=== PATIENT | female | born 1980 | race Caucasian/White ===

== ENCOUNTER 2020-02-12 17:45 | Inpatient (IN) | payer MEDICAID, SELFPAY ==
[2020-02-12] VITALS (83 sets, daily range): BP systolic 0–133; BP diastolic 0–75; PULSE 46–73; RESP 18; TEMP 36.9–37; O2SAT 91–100
[2020-02-12] MEDS: lactated ringers 1,000 ML 125 ML IV (12:56)
[2020-02-12] MEDS: ampicillin 2,000 MG in sodium chloride 0.9% (plus) 50 ML 100 MG IV (12:56)
[2020-02-12 13:14] LABS: Basophils % 0.2 %; Eosinophils # 0.1 10^3/uL (0.0-0.8); Eosinophils % 0.9 %; Hematocrit 37.1 % (37.0-47.0); Hemoglobin 11.8 g/dL (11.5-15.3); Lymphocytes # 1.6 10^3/uL (0.8-4.8); Lymphocytes % 17.8 %; Mean Corpuscular HGB Conc 31.8 g/dL (30.0-36.0); Mean Corpuscular Hemoglobin 29.9 pg (28.0-34.0); Mean Corpuscular Volume 93.9 fL (81-99); Mean Platelet Volume 11.9 fL (7.4-10.4); Monocytes # 0.5 10^3/uL (0.2-0.9); Monocytes % 5.2 %; Neutrophils # 6.63 10^3/uL (1.8-7.7); Neutrophils % 74.9 %; Nucleated Red Blood Cells % 0 %; Platelet Count 172 10^3/cmm (130-400); Red Blood Count 3.95 10^6/uL (4.1-5.3); Red Cell Distribution Width 13.5 % (12.1-15.1); White Blood Count 8.9 10^3/uL (4.0-10.0)
[2020-02-12] MEDS: ampicillin 1,000 MG in sodium chloride 0.9% (plus) 50 ML 100 MG IV ×2 (16:45→20:51)
[2020-02-12] MEDS: oxytocin 30 UNIT/500 ML BAG IV (17:45)
--- NOTE | 2020-02-12 17:46 | PM.HP ---
Providers/Chief Complaint Chief Complaint: malpresentation History of Present Illness Amira Juarez is a 39 year old female G6, P5 at 40 weeks 1 day gestation who is here for external cephalic version and induction.. Mother had insufficient care starting at approximately 22 weeks gestation. Her first ultrasound was around 26 weeks gestation but was consistent with her LMP. The baby was vertex until her office visit yesterday where he was found to be breech. She was also noted to have polyhydramnios with an TOMMY of 27. Biophysical profile was 8 out of 8. The patient wished to go into labor on her own and had declined induction at 39 weeks gestation. With a new diagnosis of malpresentation and polyhydramnios risk benefits and alternatives of , external cephalic version, breech vaginal delivery were discussed with the mother at length. Decision was made to attempt external cephalic version. If it was successful we would then induce. If it is unsuccessful then we will proceed with section Review of Systems Const: Denies: fever(s), chills or body aches Eyes: Denies: blurry vision ENMT: Denies: throat pain Card: Denies: chest pain or palpitations Resp: Denies: dyspnea or productive cough GI: Denies: abdominal pain, nausea or vomiting : Denies: flank pain or difficulty voiding Musc: Denies: joint redness Skin/Breast: Denies: rash Neuro: Denies: headache(s) or numbness in extremities Endo: Denies: polyuria or polydipsia Checo/Lymph: Denies: easy bruising or easy bleeding Medications/Allergies Home Medications Medication Instructions Recorded Confirmed Last Taken Type vit no.[id number] 1 tab PO DAILY 02/12/20 02/12/20 02/11/20 18:00 History [ Vitamin] PFSH Acute PFSH: Social History (Updated 02/12/20 @ 17:56 by Sandie Chavez MD) Smoking and tobacco status: never smoked Second hand smoke exposure: No Alcohol intake: never Substance/Drug Use: never Number of children: 5 Female Reproductive History: Date of last menstrual period: 05/07/19 control method: none : 6 Para: 5 Spontaneous abortions: No Other female reproductive history: x 5, all full term, largest 9#0 oz. She was still her youngest child and did not think much about missing periods until she noticed she was getting bigger. First visit was 10/03/19. Due to a misunderstanding she scheduled her first ultrasound at her next visit in 1 month but at 26 weeks it was consistent with her lmp. Vitals/I&O/Wt Last Vital Signs Temp 98.6 F 02/12/20 12:24 Pulse 59 L 02/12/20 16:53 Resp 18 02/12/20 12:24 BP 105/60 02/12/20 16:53 02/12/20 02/12/20 02/12/20 06:59 14:59 22:59 Intake Total 120.833 / 120.833 0 / 120.833 Balance 120.833 / 120.833 0 / 120.833 Weight last 48 hrs Weight 205 lb Physical Exam Const: COMMON NORMALS: no acute distress GENERAL APPEARANCE: cooperative and comfortable HENMT: COMMON NORMALS: normocephalic and atraumatic Eye: COMMON NORMALS: Equal, round and reactive pupils present and EOMs intact bilaterally Chest: COMMONS NORMALS: normal inspection of the chest Resp: COMMON NORMALS: normal respiratory effort, No use of accessory muscles and clear to auscultation bilaterally Cardio: COMMON NORMALS: regular rate and regular rhythm GI: COMMON NORMALS: non-tender Extremity: COMMON NORMALS: no calf tenderness and no pedal edema Neuro: COMMON NORMALS: patient oriented x3 SENSORIUM/ORIENTATION: Yes alert Psych: COMMON NORMALS: mental status grossly normal Data : 02/12/20 12:50 A&P Assessment and plan (1) Breech presentation of fetus: Given the fact that she is a multipara with a history of fast labors and she is GBS positive we will go ahead and give her 2 doses of ampicillin prior to attempting external cephalic version. Plan is to do external cephalic version and then proceed with induction for vaginal delivery. If the external cephalic version is unsuccessful then we will proceed with section for breech delivery. Status: Acute (2) 40 weeks gestation of : Status: Acute (3) Advanced maternal age (AMA) in : Status: Acute (4) Insufficient care: Status: Acute (5) Polyhydramnios: Status: Acute (6) Positive GBS test: Status: Acute Attestations Medical Necessity Statement*: Expectant management and possible surgery Coding Level of Care Code Acute Shop Repairer for Chg Fwd Diagnoses Breech presentation of fetus O32.1XX0 40 weeks gestation of Z3A.40 Advanced maternal age (AMA) in Insufficient care O09.30 Polyhydramnios O40.9XX0 Positive GBS test B95.1
--- NOTE | 2020-02-12 18:06 | PM.ACPR ---
Procedure/Consent Procedure Narrative: External cephalic version After informed consent bedside ultrasound was performed to verify breech presentation and ensure that the umbilical cord was not encircling the neck. The umbilical cord was noted to be in front of the face, spine maternal left, left leg extended in front of the face and right leg flexed. heart tones were 125. A copious amount of ultrasound gel was applied to the patient's belly and using gentle pushing movements on the 's buttocks and head, the was rotated into cephalic presentation within 2.5 minutes time. heart tones were assessed at the 2-minute madhav and found to be 135. They were also 135 at the end of the procedure. Mother tolerated the procedure well and there were no complications. Anesthesia was present on the floor in case of emergency.
--- NOTE | 2020-02-12 18:45 | ANES.PROC ---
Anesthesia Procedures Procedure/Date: 02/12/20 Epidural: Time Out Performed: Yes Consents Signed: Procedure Consent Consent: requested by attending/covering physician Lumbar Level: L3-L4 Epidural position: sitting Epidural procedure: sterile prep of area, 1% lidocaine to numb the area, 18 g needle, negative for paresthesia passed, neg for paresthesia, test dose given, 1.5% xylocaine 1:200k epi (3), no systemic response, sterile dressing applied, L.U.D. no apparent complications and 0.2% Ropiavacaine @ mls/hr (13)
--- NOTE | 2020-02-12 18:57 | PC.NURSE ---
External cephalic version Dr Chavez at bedside at 1710, spoke with pt, monitors off, bedside ultrasound performed by Dr Chavez, baby transverse, head to maternal left. at 1726 FHTs 120s, external version started, at 1728 FHTs 120s, at 1729 baby confirmed head down via bedside ultrasound, 1730 FHTs 150s. External monitors back on and orders for high dose pitocin. Pitocin started at 1745.
[2020-02-12] MEDS: lactated ringers 1,000 ML 999 ML IV (19:22)
[2020-02-12] MEDS: terbutaline 1 mg/mL INJ 0.25 MG SUBCUT (23:54)
[2020-02-13] VITALS (31 sets, daily range): BP systolic 0–110; BP diastolic 0–70; PULSE 64–121; RESP 14–18; TEMP 36.4–36.8; O2SAT 92–100
[2020-02-13] MEDS: citric acid-sodium citrate 30 mL UDC PO (00:15)
[2020-02-13] MEDS: famotidine 20 mg/2 mL INJ IVP ×2 (00:15)
--- NOTE | 2020-02-13 01:55 | P.OP_ITS ---
Operative Report Date of procedure: February 13, 2020 Pre-op Diagnosis: Acute intraoperative bleeding Post-op Diagnosis: Acute intraoperative bleeding Procedure Done: Closure of uterine incision and uterine artery ligation Surgeon: Parker Mandujano Assembler Mechanical Ordnance: Sandie Chavez Anesthesia: Other (Regional) Estimated blood loss: >1200 mL Findings: Inferior extension of the left side of the uterine incision extending to the broad ligament, superior extension of the left side of the incision into the main part of the uterus. Brief History: I was contacted by the OR nurse at the request of Dr. Chavez due to intraoperative bleeding from uterine incision. Patient is a 6, para 5 with an EDC of 02/11/2020, who was at 40-1/7 weeks gestation at the time of admission on 02/12/2020. She had been taken to the operating room by Dr. Chavez for primary section. During the surgery, she had bleeding from the left side of the uterine incision with an inferior extension to the edge and possibly into the broad ligament. As a result, I was consulted. Procedure: On my arrival, the uterus was exteriorized and the uterine incision had been initially closed with first layer closure. On my inspection, she was noted to be bleeding from an inferior extension at the left corner of the uterus extending down to the edge of the broad ligament. She also had an extension superiorly along the left corner of the uterus as well into the main body of the uterus. Using 0 chromic suture, I initially oversewed the inferior extension. During this process we found that uterine vessels were involved with the bleeding. This initially significantly slowed the bleeding at the extension area. The incision was then imbricated using a running locking stitch carried in a cephalad direction along the inferior extension and then up along the superior extension as well before imbricating the rest of the low transverse incision. On reinspection of the left inferior extension, she was noted to still be bleeding from the area and decision was made to tie the uterine vessels. Using 0 chromic suture, a xwottg-ce-txaai stitch was placed below the apex of the extension. The stitch was initially passed through the body of the uterus from anterior to posterior. It was then passed back through the broad ligament, not incorporating the ovarian vessels in the process. This was then repeated in a similar fashion for the second throw the suture. When tied, this compressed the uterine vessels against the side of the uterus and stopped the bleeding from the area of the inferior extension. She was still having some bleeding from the superior extension on the left side and a third layer was then oversewn of the superior extension using 0 chromic suture in a running fashion. This brought it to hemostasis as well. The incision was then inspected and appeared hemostatic. The posterior cul-de-sac was inspected with minimal blood present. No hematoma formation was noted within the broad ligament bilaterally. Uterus was returned to the abdomen. Uterine incision was irrigated and inspected. The left side of the incision included the extensions were noted to be hemostatic. The transverse portion of the uterine incision was hemostatic as well. However, she was bleeding in the corner of the right side of her incision. Direct pressure was initially held for approximately 5 minutes. However afterwards the corner was still bleeding and a stitch of 0 chromic suture was placed distal to the end of the incision and it was noted to be hemostatic afterwards. The incision was then again fully inspected and noted to be hemostatic. At this point the surgery was turned back over to Dr. Chavez who completed the closure of the abdomen.
[2020-02-13 02:32] LABS: Basophils % 0.2 %; Eosinophils % 0.1 %; Hematocrit 28.3 % (37.0-47.0); Hemoglobin 8.9 g/dL (11.5-15.3); Lymphocytes % 5.8 %; Mean Corpuscular HGB Conc 31.4 g/dL (30.0-36.0); Mean Corpuscular Hemoglobin 30.3 pg (28.0-34.0); Mean Corpuscular Volume 96.3 fL (81-99); Mean Platelet Volume 11.8 fL (7.4-10.4); Monocytes % 5.6 %; Neutrophils # 15.76 10^3/uL (1.8-7.7); Neutrophils % 87.7 %; Nucleated Red Blood Cells % 0 %; Platelet Count 142 10^3/cmm (130-400); Red Blood Count 2.94 10^6/uL (4.1-5.3); Red Cell Distribution Width 13.7 % (12.1-15.1)
--- NOTE | 2020-02-13 02:36 | PM.OP ---
Operative Report Date of procedure: February 13, 2020 Pre-op Diagnosis: Acute intraoperative bleeding Pre-op Diagnosis: Nonreassuring heart tones Failure to descend Post-op diagnosis: same Procedure Done: Emergent primary low transverse section via Pfannenstiel skin incision Specimens removed/disposition: Vertex male infant weight 3690 g, 8 pounds 2 ounces, Apgars 9 and 9 Pathology: none sent Anesthesia: Epidural Estimated blood loss (mL): 1,100 IV fluids (mL): 2,000 Urine output (mL): 100 Complications: Left uterine incision extension both superiorly and inferiorly with acute intraoperative bleeding. Condition: stable Disposition: floor Brief History: This is a 39-year-old at 40 weeks 2 days gestation who was admitted for external cephalic version which ended up being successful. She was known to be GBS positive and had a history of fast labors so she was started on ampicillin protocol prior to the version. After the successful version the patient was then induced using Pitocin. For a multipara she was slow to make cervical change. She had spontaneous rupture of the membranes with copious clear fluid jonatan bout 6 cm dilation. Immediately thereafter the patient began having FHR decelerations. Despite stopping the Pitocin, repositioning, starting oxygen and bolusing the decelerations persisted and she was given a dose of terbutaline. During this time I was called emergently and when I presented the patient was in hands and knees with heart tones in the 110s. Cervical exam was performed with the patient in the same position and was felt to be favorable with easily reducible cervix. After we allowed recovery of the infant's heart tones we positioned her back in dorsal lithotomy position. The infant's head was -3 station and with contractions heart rate with D-cell into the 80s. Decision was made to proceed with emergent section as the patient was still 6 cm and the was not tolerating contractions, no descending. Procedure: After bolusing her epidural the patient was taken to the OR where she was prepped and draped emergently with a Betadine splash. After verifying adequate epidural anesthesia a Pfannenstiel skin incision was made and carried through to the underlying rectus muscles sharply using the scalpel. The peritoneum was then entered bluntly using a hemostat. The bladder blade was inserted. The vesicouterine peritoneum was entered sharply using the Metzenbaums and the bladder flap was created digitally. The bladder blade was then reinserted. Uterine incision was made in a transverse fashion in the lower uterine segment. Amniotic rupture membranes was performed sharply using the scalpel. The 's head was delivered atraumatically with immediate delivery of the body. There was a body cord. The had strong cry and was suctioned at delivery. The cord was clamped and cut and the was handed to the waiting pediatric team. Cord blood was obtained. The placenta was delivered grossly intact and normal to inspection using fundal pressure. The uterus was then exteriorized from the abdomen and a dry sponge was used to clear the uterus of clots and debris. There was a copious amount of blood flowing from the left aspect of the incision and Dr. Mandujano was called in for assistance. Multiple ring forceps were used to grasp the lower and left incision edges to hetal the bleeding. The uterine incision was then reapproximated using 0 chromic in a running locked fashion. Dr. Mandujano presented at this point and took over repair of the inferior extension, ligation of the left uterine vessels and repair of the superior extension. Please see his dictation for further details. After the uterine incision was hemostatic. I then reapproximated the peritoneum using 4-0 Vicryl in a running fashion. The subfascial tissue was inspected for hemostasis. The fascia was then reapproximated using 0 Vicryl in a running fashion. The subcutaneous tissue was then irrigated and any small bleeders were coagulated using the Bovie. The subcutaneous tissue was then reapproximated using 4-0 Vicryl in a running fashion. The skin was then reapproximated using 4-0 Vicryl on a Cipriano needle. Steri-Strips and a pressure bandage were applied and patient went to recovery in stable condition. Sponge instrument and needle counts were correct Associated Problem List Diagnoses (1) Non-reassuring heart tones complicating , antepartum: (2) Failure of descent in labor, delivered, current hospitalization:
--- NOTE | 2020-02-13 04:45 | PC.NURSE ---
0010 DR URENA IN ROOM. BABY IS NOT DESCENDING. SECTION CALLED AT THIS TIME. ANESTHESIA IS ON FLOOR.
--- NOTE | 2020-02-13 05:25 | PC.NURSE ---
0057 - DR ANDRADE CALLED FROM OR PER DR URENA REQUEST DUE TO UTERINE INCISION EXTENSION AND BLEEDING. 0110 - DR ANDRADE SCRUBBING IN FOR SURGERY.
--- NOTE | 2020-02-13 05:31 | PC.NURSE ---
0056 - DR URENA ORDERED EMERGENCY RELEASE BLOOD AT THIS TIME. 0105- EMERGENCY RELEASE BLOOD IN OR. 0105 - KEEP ON HOLD PER DR URENA.
[2020-02-13] MEDS: ketorolac 30 mg/mL INJ IVP ×3 (09:06→20:49)
--- NOTE | 2020-02-13 09:12 | ANE.PACU2 ---
Inpatient post-anesthesia follow up: Airway intact: Yes Vital signs: Temperature 98.1 F Pulse Rate 86 Respiratory Rate 14 Blood Pressure 97/64 Pulse Oximetry 98 Oxygen Delivery Me thod Room Air Oxygen Flow Rate Fraction of Inspir ed Oxygen Hydration adequate: Yes Nausea and vomiting: No Pain level: 5 Mental status: Baseline Additional Comments: Alvarado in place, not up and walking yet. No back pain, no headache, no signs of infection at epidural site. Denies weakness or numbness of legs
[2020-02-13] MEDS: dextrose 5%-lactated ringers 1,000 ML 125 ML IV (10:07)
[2020-02-13 11:20] LABS: Basophils % 0.3 %; Hematocrit 24.4 % (37.0-47.0); Hemoglobin 7.9 g/dL (11.5-15.3); Lymphocytes # 1.1 10^3/uL (0.8-4.8); Lymphocytes % 9.8 %; Mean Corpuscular HGB Conc 32.4 g/dL (30.0-36.0); Mean Corpuscular Hemoglobin 31.1 pg (28.0-34.0); Mean Corpuscular Volume 96.1 fL (81-99); Mean Platelet Volume 11.8 fL (7.4-10.4); Monocytes # 0.6 10^3/uL (0.2-0.9); Monocytes % 5.5 %; Neutrophils # 9.12 10^3/uL (1.8-7.7); Neutrophils % 83.8 %; Nucleated Red Blood Cells % 0 %; Platelet Count 139 10^3/cmm (130-400); Red Blood Count 2.54 10^6/uL (4.1-5.3); Red Cell Distribution Width 13.7 % (12.1-15.1); White Blood Count 10.9 10^3/uL (4.0-10.0)
[2020-02-13] MEDS: docusate sodium 100 mg Capsule PO (17:08)
[2020-02-13] MEDS: HYDROcodone-acetaminophen 5-325 mg Tablet PO ×2 (17:15→22:08)
[2020-02-13] MEDS: ferrous sulfate EC 325 mg Tablet PO (17:19)
[2020-02-14] MEDS: HYDROcodone-acetaminophen 5-325 mg Tablet PO ×6 (02:06→23:45)
[2020-02-14] MEDS: simethicone 80 mg Chew PO ×2 (03:48→23:52)
[2020-02-14 04:10] LABS: Basophils % 0.3 %; Eosinophils # 0.1 10^3/uL (0.0-0.8); Eosinophils % 0.5 %; Hematocrit 22.8 % (37.0-47.0); Hemoglobin 7.3 g/dL (11.5-15.3); Lymphocytes # 1.7 10^3/uL (0.8-4.8); Lymphocytes % 14.9 %; Mean Corpuscular Hemoglobin 30.8 pg (28.0-34.0); Mean Corpuscular Volume 96.2 fL (81-99); Monocytes # 0.7 10^3/uL (0.2-0.9); Monocytes % 6.1 %; Neutrophils # 8.94 10^3/uL (1.8-7.7); Neutrophils % 77.6 %; Nucleated Red Blood Cells % 0 %; Platelet Count 144 10^3/cmm (130-400); Red Blood Count 2.37 10^6/uL (4.1-5.3); Red Cell Distribution Width 14.2 % (12.1-15.1); White Blood Count 11.5 10^3/uL (4.0-10.0)
[2020-02-14 04:30] VITALS: BP 107/72; PULSE 74; RESP 16; TEMP 36.7; O2SAT 98
[2020-02-14] MEDS: prenatal vitamin Capsule 1 CAP PO (08:20)
[2020-02-14] MEDS: ferrous sulfate EC 325 mg Tablet PO ×2 (08:20→18:54)
[2020-02-14] MEDS: docusate sodium 100 mg Capsule PO ×2 (08:20→18:54)
--- NOTE | 2020-02-14 11:36 | ANE.PACU2 ---
Inpatient post-anesthesia follow up: Airway intact: Yes Vital signs: Temperature 98.1 F Pulse Rate 74 Respiratory Rate 16 Blood Pressure 107/72 Pulse Oximetry 98 Oxygen Delivery Me thod Room Air Oxygen Flow Rate Fraction of Inspir ed Oxygen Hydration adequate: Yes Nausea and vomiting: No Pain level: 1 Mental status: Baseline Additional Comments: Called to evaulate patient for residual back pain associated with epidural. Site shows no signs of infection and no bruising. Mildly tender to palpation. Patient complaining of localized pain at the area. No muscle weakness no numbness of lower extremities. Educated patient that discomfort should continued to improve and to look for development of red flags like increasing pain, swelling, purulence, erythema, fever, or loss of bowel or bladder function, weakness or numbness.
--- NOTE | 2020-02-14 12:24 | PM.PN ---
Subjective Subjective: Interval history: When I visit with the patient she does not have any complaints. She states that her bleeding is not bad at all. Her pain is adequately controlled. Vitals/I&O/Wt Last Vital Signs Temp 98.1 F 02/14/20 04:30 Pulse 74 02/14/20 04:30 Resp 16 02/14/20 04:30 BP 107/72 02/14/20 04:30 Pulse Ox 98 02/14/20 04:30 02/13/20 02/14/20 02/14/20 22:59 06:59 14:59 Intake Total 322.917 / 891.667 Output Total 550 / 1200 1580 / 1580 Balance -227.083 / -308.333 -1580 / -1580 Weight last 48 hrs Weight 205 lb Physical Exam Const: COMMON NORMALS: no acute distress GENERAL APPEARANCE: cooperative and comfortable HENMT: COMMON NORMALS: normocephalic HEAD & SCALP: normocephalic Eye: COMMON NORMALS: Equal, round and reactive pupils present and EOMs intact bilaterally PUPIL: Yes Equal, round and reactive pupils present Chest: COMMONS NORMALS: normal inspection of the chest Resp: COMMON NORMALS: normal respiratory effort and No use of accessory muscles Cardio: COMMON NORMALS: regular rate and regular rhythm RATE: regular rate RHYTHM: regular rhythm GI: COMMON NORMALS: Soft to palpation INSPECTION: Yes normal to inspection and Yes incision (Patient still has a pressure bandage in place. She was advised to remove this with her shower) PALPATION: Yes Soft to palpation and Yes Tenderness to palpation present (GI) (Appropriate postoperative) Extremity: COMMON NORMALS: no pedal edema GENERAL: No calf tenderness Urinary Catheter Management^: Alvarado: Cath Placed During This Visit: yes, but has since been removed by the nurse Reason for Continuing Indwelling Catheter: Decision to DC Catheter Urinary Catheter Date of Insertion: 02/13/20 Urinary Catheter Time of Insertion: 00:20 Date Urinary Catheter Removed: 02/13/20 Time Urinary Catheter Discontinued: 17:15 Data : 02/14/20 03:55 A&P Assessment and plan (1) Status post primary low transverse section: Routine postoperative care Status: Acute (2) Failure of descent in labor, delivered, current hospitalization: Status: Acute (3) Non-reassuring heart tones complicating , antepartum: Status: Acute (4) Positive GBS test: Status: Acute (5) Polyhydramnios: Status: Acute (6) Insufficient care: Status: Acute (7) Advanced maternal age (AMA) in : Status: Acute (8) 40 weeks gestation of : Status: Acute (9) Breech presentation of fetus: Status: Acute Attestations Medical Necessity Statement*: Routine and postoperative care Coding Level of Care Code Acute Roll Forming Machine Set Up Operator for Chg Fwd Diagnoses Status post primary low transverse section Z98.891 Failure of descent in labor, delivered, current hospitalization O62.2 Non-reassuring heart tones complicating , antepartum O36.8390 Positive GBS test B95.1 Polyhydramnios O40.9XX0 Insufficient care O09.30 Advanced maternal age (AMA) in 40 weeks gestation of Z3A.40 Breech presentation of fetus O32.1XX0
[2020-02-14 12:30] VITALS: BP 95/58; PULSE 80; RESP 18; TEMP 36.4; O2SAT 100
[2020-02-14 18:45] VITALS: BP 101/49; PULSE 60; RESP 16; TEMP 36.4; O2SAT 99
[2020-02-15] MEDS: HYDROcodone-acetaminophen 5-325 mg Tablet PO ×5 (05:11→23:39)
[2020-02-15 06:35] VITALS: BP 98/62; PULSE 83; RESP 16; TEMP 36.7; O2SAT 97
[2020-02-15] MEDS: simethicone 80 mg Chew PO ×4 (08:43→23:39)
[2020-02-15] MEDS: docusate sodium 100 mg Capsule PO ×2 (08:44→18:54)
[2020-02-15] MEDS: ferrous sulfate EC 325 mg Tablet PO ×2 (08:44→18:54)
[2020-02-15] MEDS: prenatal vitamin Capsule 1 CAP PO (08:45)
--- NOTE | 2020-02-15 08:57 | PC.NURSE ---
I WENT TO SEE THIS PT. SHE WAS HOLDING BABY WHO WAS ASLEEP. SHE REVIEWED HER I/O SHEET FOR ME SAYING SHE HEARD THE NURSES AT THE DESK TALKING ABOUT HER I/O SHEET BEING OUT OF ORDER IN THE TIMELINE. SHE DID NOT HAVE HER SHEET AT THE START OF THE SHIFT AND WHEN SHE GOT IT SHE WROTE THE CURRENT FEEDING (AT THAT TIME) DOWN THEN BACKTRACKED TO RECORD ALL FEEDINGS. SHE SAID THEY COULD HAVE COME TO ME AND ASKED RATHER THAN TALK ABOUT ME AT THE DESK. SHE HAS HAD MORE FEEDINGS THIS PAST NIGHT. I STARTED TALKING TO HER ABOUT BABY'S WEIGHT LOSS AND SHE KNEW IT WAS NORMAL FOR BABIES TO LOSE WEIGHT. I TOLD HER HER BABY WAS 3 OZ. BELOW THE 7% AND SHE TOLD ME TO GET OUT, SHE WILL DISCUSS IT WITH HER DOCTOR AND SHE WILL NOT BE FORCED TO GIVE FORMULA. I TOLD HER I DID NOT WANT HER TO GIVE FORMULA AND THAT DR URENA WILL BE IN TO SEE HER SOON. Initialized on 02/15/20 08:44 - END OF NOTE
--- NOTE | 2020-02-15 09:24 | PM.PN ---
Subjective Subjective: Interval history: She has not had a bowel movement but she is passing flatus. She states that she is swelling a terrible amount. Her bleeding is very minimal. Her pain is controlled with the medications Vitals/I&O/Wt Last Vital Signs Temp 98.0 F 02/15/20 06:35 Pulse 83 02/15/20 06:35 Resp 16 02/15/20 06:35 BP 98/62 02/15/20 06:35 Pulse Ox 97 02/15/20 06:35 02/14/20 02/15/20 02/15/20 22:59 06:59 14:59 Intake Total 800 / 800 1000 / 1800 Balance 800 / -1480 1000 / -480 Physical Exam Const: COMMON NORMALS: no acute distress GENERAL APPEARANCE: cooperative and comfortable HENMT: COMMON NORMALS: normocephalic HEAD & SCALP: normocephalic Eye: COMMON NORMALS: Equal, round and reactive pupils present and EOMs intact bilaterally PUPIL: Yes Equal, round and reactive pupils present Resp: COMMON NORMALS: normal respiratory effort and No use of accessory muscles Cardio: COMMON NORMALS: regular rate RATE: regular rate GI: COMMON NORMALS: Soft to palpation INSPECTION: Yes normal to inspection PALPATION: Yes Soft to palpation, Yes Firmness to palpation present (GI) (Fundus firm U- 2) and Yes Tenderness to palpation present (GI) (Appropriate postoperative, incision clean dry and intact) Extremity: COMMON NORMALS: no calf tenderness GENERAL: Yes edema (Nonpitting) Urinary Catheter Management^: Alvarado: Cath Placed During This Visit: yes, but has since been removed by the nurse Reason for Continuing Indwelling Catheter: Decision to DC Catheter Urinary Catheter Date of Insertion: 02/13/20 Urinary Catheter Time of Insertion: 00:20 Date Urinary Catheter Removed: 02/13/20 Time Urinary Catheter Discontinued: 17:15 Data : 02/14/20 03:55 A&P Assessment and plan (1) Status post primary low transverse section: Status: Acute Additional A&P Information Continue routine postoperative and care likely discharge home tomorrow Attestations Medical Necessity Statement*: Routine postoperative and care Coding Level of Care Code Acute Single Needle Operator for Chg Fwd Diagnoses Status post primary low transverse section Z98.891
[2020-02-15 10:00] VITALS: BP 111/62; PULSE 82; RESP 16; TEMP 36.4; O2SAT 97
[2020-02-15 17:00] VITALS: BP 101/68; PULSE 64; RESP 16; TEMP 36.6; O2SAT 98
[2020-02-15 22:10] VITALS: BP 118/70; PULSE 78; RESP 16; TEMP 36.6; O2SAT 98
[2020-02-16] MEDS: HYDROcodone-acetaminophen 5-325 mg Tablet PO ×3 (04:24→11:51)
[2020-02-16] MEDS: simethicone 80 mg Chew PO (04:24)
[2020-02-16 05:00] VITALS: BP 123/81; PULSE 64; RESP 16; TEMP 36.6; O2SAT 98
[2020-02-16] MEDS: prenatal vitamin Capsule 1 CAP PO (08:44)
[2020-02-16] MEDS: docusate sodium 100 mg Capsule PO (08:44)
[2020-02-16] MEDS: ferrous sulfate EC 325 mg Tablet PO (08:46)
--- NOTE | 2020-02-16 09:59 | PM.OBGYDC ---
Discharge Providers DATA MANAGEMENT SPECIALIST Date of Admission: 02/12/20 17:45 Date of Discharge: 02/16/20 Attending Provider at Admission: Sandie Chavez MD Attending Provider at Discharge: Sandie Chavez MD Diagnoses at Discharge Discharge Diagnosis (1) Status post primary low transverse section: Status: Acute (2) Failure of descent in labor, delivered, current hospitalization: Status: Acute (3) Non-reassuring heart tones complicating , antepartum: Status: Acute (4) Positive GBS test: Status: Acute (5) Polyhydramnios: Status: Acute (6) Insufficient care: Status: Acute (7) Advanced maternal age (AMA) in : Status: Acute (8) 40 weeks gestation of : Status: Acute (9) Breech presentation of fetus: Status: Acute Reason for Visit Reason for Visit: malpresentation Hospital Course Hospital Course: This is a 39-year-old G6 now P6 who was admitted for external cephalic version and induction at 40 weeks 2 days gestation. She underwent a successful cephalic version however in the labor process after her water was broken the began having deep decelerations with every contraction. His station was also extremely high and without change since the beginning of the induction. Decision was made to proceed with emergent section. section was complicated by acute intraoperative bleeding. Mother did well after surgery. She was ambulating, tolerating a regular diet, had decent pain control and was requesting discharge home. Information Peripartum Data: Delivery Method: Section Physical Exam Const: COMMON NORMALS: no acute distress and patient oriented x3 GENERAL APPEARANCE: cooperative and comfortable HENMT: COMMON NORMALS: normocephalic HEAD & SCALP: normocephalic Eye: COMMON NORMALS: Equal, round and reactive pupils present and EOMs intact bilaterally PUPIL: Yes Equal, round and reactive pupils present Chest: COMMONS NORMALS: normal inspection of the chest Resp: COMMON NORMALS: normal respiratory effort, No retractions and No use of accessory muscles GI: COMMON NORMALS: Soft to palpation INSPECTION: Yes normal to inspection and Yes incision (Clean dry and intact) Inspection of incision: healing well AUSCULTATION: Yes normoactive bowel sounds PALPATION: Yes Soft to palpation and Yes Tenderness to palpation present (GI) (Minimal, no wincing or flinching to deep palpation) Extremity: GENERAL: No calf tenderness and Yes edema Neuro: COMMON NORMALS: patient oriented x3 Urinary Catheter Management^: Alvarado: Cath Placed During This Visit: yes, but has since been removed by the nurse Reason for Continuing Indwelling Catheter: Decision to DC Catheter Urinary Catheter Date of Insertion: 02/13/20 Urinary Catheter Time of Insertion: 00:20 Date Urinary Catheter Removed: 02/13/20 Time Urinary Catheter Discontinued: 17:15 Discharge Data Data Completed and Pending: Pending at discharge Category Date Time Status Leukocyte Reduced RBC Stat Lab 02/13/20 01:31 Results Type and Screen S tat Lab 02/13/20 01:31 Results Labs from last 24 hours 02/12/20 12:50 Crossmatch See Detail Vitals: Last Vital Signs Temp 97.9 F 02/16/20 05:00 Pulse 64 02/16/20 05:00 Resp 16 02/16/20 05:00 BP 123/81 02/16/20 05:00 Pulse Ox 98 02/16/20 05:00 Discharge Plan Discharge Patient Disposition: Home Condition: Stable Prescriptions: New ibuprofen 800 mg Tablet 800 mg PO TID PRN (Reason: Abdominal Discomfort) Qty: 30 RF: 0 hydrocodone-acetaminophen 5-325 mg Tablet 1 - 2 tab PO Q4H PRN (Reason: Moderate To Severe Pain) 5 Days Qty: 20 RF: 0 docusate sodium 100 mg Capsule 100 mg PO BID Qty: 60 RF: 0 Continued Vitamin 27 mg iron- 800 mcg Tablet 1 tab PO DAILY RF: 0 Referrals: Sandie Chavez MD [Physician] - 7-10 days Discharge Diet: Usual diet Discharge Activity: Limit activity as instructed Discharge Attestations DATA MANAGEMENT SPECIALIST Time Spent in Discharge Care*: greater than 30 min Coding Level of Care Code Acute Potato Pancake Frier for Chg Fwd Exam Detailed Diagnoses Status post primary low transverse section Z98.891 Failure of descent in labor, delivered, current hospitalization O62.2 Non-reassuring heart tones complicating , antepartum O36.8390 Positive GBS test B95.1 Polyhydramnios O40.9XX0 Insufficient care O09.30 Advanced maternal age (AMA) in 40 weeks gestation of Z3A.40 Breech presentation of fetus O32.1XX0
[2020-02-16 10:00] VITALS: BP 121/66; PULSE 68; RESP 18; TEMP 36.7
[2020-02-16 13:10] VITALS: BP 100/58; PULSE 78; RESP 16; TEMP 36.7; O2SAT 98
[2020-02-16 13:11] VITALS: BP 100/58; PULSE 78; RESP 16; TEMP 36.7; O2SAT 98
== END 2020-02-16 13:17 | disposition home or self-care (01) | DRG 768 ==
LOC: OPOB 17:56 → OBGYN 17:56
PROVIDERS: Admitting Provider Family Medicine; Visit Provider Family Medicine
PROC: 10E0XZZ Delivery of Products of Conception, External Approach (ICD-10-PCS; CPT 59514; principal; 2020-02-13 00:30)
DX: O64.8XX0 Obstructed labor due to other malposition and malpresentation, not applicable or unspecified (principal); Z37.0 Single live birth; O34.593 Maternal care for other abnormalities of gravid uterus, third trimester; O76 Abnormality in fetal heart rate and rhythm complicating labor and delivery; O65.5 Obstructed labor due to abnormality of maternal pelvic organs; Z3A.40 40 weeks gestation of pregnancy; O99.824 Streptococcus B carrier state complicating childbirth; O40.3XX0 Polyhydramnios, third trimester, not applicable or unspecified
CPT/HCPCS: 12345; 36415; 51702; 59025; 59409; 85025; 86850; 86900; 86920; 96372; 96374; 96375; 98960; 99211; J0290; J1885; J2250; J2274; J2704; J2795; J3010; J3105; J3490; J7030

== ENCOUNTER 2020-02-17 08:17 | Emergency (ER) | payer MEDICAID, SELFPAY ==
[2020-02-17 08:21] VITALS: BP 154/97; PULSE 92; RESP 20; TEMP 36.7; O2SAT 99; BMI 30.4
--- NOTE | 2020-02-17 08:39 | ED_ITS ---
HPI - General Adult General: Chief complaint: Anxiety Stated complaint: SPINE PAIN POST GIVING Time Seen by Provider: 02/17/20 08:19 Source: patient Mode of arrival: ambulatory Limitations: no limitations History of Present Illness: HPI narrative: Patient is a 39-year-old female who presents to ED today with multiple medical complaints. Patient is approximately 5 days section delivery. Patient states she is having tingling to her left leg. She complains of a headache and neck pain. Patient tells me she had neck pain after her last epidural that was treated successfully with steroids. She is complaining of swelling to her lower extremities. She is complaining of some chest pain. She feels like her tongue is numb and swollen and feels like her speech is slurred. Patient seems extremely anxious on exam. She states she has been mixing up the gender of her . She has been treating her headache and neck pain with the hydrocodone and ibuprofen that she was prescribed following delivery. Associated symptoms: Reports chest pain, dyspnea and headache(s); Deny malaise, nausea, rash, palpitations, syncope or vomiting Review of Systems Const: Denies: fever(s), chills, body aches, fatigue or malaise Eyes: Denies: change in vision, blurry vision, photophobia, floaters or seeing flashes ENMT: Reports: other (reports tongue numbness and swelling); Denies: throat pain, odynophagia, mouth pain, oral sores, dental pain, dry mouth, ear or mastoid pain, nasal discharge or nasal congestion Card: Reports: chest pain and swelling of feet/ankles; Denies: palpitations, irregular heart rhythm, edema, lightheadedness, syncope, pre-syncope, dyspnea on exertion or orthopnea Resp: Reports: dyspnea; Denies: productive cough, non-productive cough, pain on inspiration, change in phlegm color, hemoptysis or chest congestion GI: Denies: abdominal pain, nausea, vomiting or diarrhea : Denies: flank pain, difficulty voiding, dysuria, urinary frequency, urinary urgency or urinary hesitancy Musc: Reports: neck pain; Denies: back pain, extremity pain, extremity swelling, joint pain, joint swelling, joint redness, joint warmth or limited range of motion Skin/Breast: Denies: rash Neuro: Reports: headache(s) and numbness in extremities (L LE) PFSH ED PFS: Social History (Updated 02/12/20 @ 17:56 by Sandie Chavez MD) Smoking and tobacco status: never smoked Second hand smoke exposure: No Alcohol intake: never Number of children: 5 Female Reproductive History: Date of last menstrual period: 05/07/19 Para: 5 Spontaneous abortions: No Physical Exam 2 Const: COMMON NORMALS: no acute distress, patient oriented x3, no limitations and alert GENERAL APPEARANCE: cooperative and anxious ORIENTATION/CONSCIOUSNESS: Yes oriented to person and Yes oriented to place HENMT: COMMON NORMALS: normocephalic, atraumatic, moist oral mucous membranes and oropharynx normal HEAD & SCALP: normal to inspection, normocephalic and atraumatic FACE & SINUS: normal facial exam and face symmetric MOUTH: Normal oral and palatal mucosa present, lip normal and tongue normal THROAT: posterior oropharynx normal, tonsils normal and uvula midline Eye: COMMON NORMALS: Equal, round and reactive pupils present, EOMs intact bilaterally, conjunctivae normal and no scleral icterus GENERAL EYE: appearance normal, both eyes and all related structures CONJUNCTIVA: Yes conjunctivae normal PUPIL: Yes Equal, round and reactive pupils present Neck/C-Spine: COMMON NORMALS: full ROM, no lymphadenopathy and no meningeal signs CERVICAL SPINE: Yes cervical ROM normal Chest: COMMONS NORMALS: normal inspection of the chest and normal palpation of entire chest wall Resp: COMMON NORMALS: normal respiratory effort and clear to auscultation bilaterally AUSCULTATION: clear to auscultation bilaterally Cardio: COMMON NORMALS: regular rate and regular rhythm RATE: regular rate RHYTHM: regular rhythm Extremity: COMMON NORMALS: normal to inspection and full ROM GENERAL: Yes normal exam except as noted Neuro: SANCHEZ COMA SCALE: document GCS findings Cuthbert coma scale eye opening: Spontaneous Sanchez coma scale verbal response: Orientated Cuthbert coma scale motor response: Obey commands Cuthbert coma scale total score: 15 COMMON NORMALS: patient oriented x3, CN's II-XII intact bilaterally, moves all extremities, no focal motor deficits and no sensory deficits noted SENSORIUM/ORIENTATION: Yes alert, Yes oriented to person and Yes oriented to place MENINGEAL SIGNS: Yes no meningeal signs SPEECH: speech normal Skin: COMMON NORMALS: no rashes or lesions noted GENERAL SKIN EXAM: no rashes or lesions noted Course Reevaluation(s): Reevaluation #1: Patient states she is starting to feel better. No longer feeling like her tongue is swollen or numb and feels her speech has improved (I never appreciated any slurred speech on exam). She reports headache is improving as well. Vital Signs: Vital signs: Vital Signs Temperature 98.0 F 02/17/20 08:21 Pulse Rate 69 02/17/20 12:22 Respiratory Rate 18 02/17/20 12:22 Blood Pressure 137/75 02/17/20 12:22 Pulse Oximetry 100 02/17/20 12:22 MDM - General Adult MDM Narrative: Medical decision making narrative: Patient seems very anxious during initial exam. She was given IM steroids and Benadryl as well as her scheduled hydrocodone. Patient tells me she does feel better. She no longer has any tongue symptoms. She feels like her speech is back to normal (again I never appreciated any slurred speech). She states her leg feels better. She still has a minor headache and neck pain. I spoke to her regarding how this is most likely a post epidural headache and a blood patch was ordered however patient adamantly refuses this. She has a completely normal neurologic exam. I have no concern for a cerebrovascular event. She has no evidence for preeclampsia. She did have a mildly elevated BNP at 367. CXR appears normal. She is a normal EKG. She had some minor chest pain initially upon arrival however does not seem to be complaining of this now. She has not complained of shortness of breath. On her labs she is anemic with a hemoglobin of 7.5. She was discharged from the hospital with a hemoglobin of 7.3. She was made aware of this and needs to follow closely with her primary care provider. Strict return to ED precautions were given. Case discussed with Dr. Koch who agrees with plan for patient. Lab Data: Labs: Lab Results 02/17/20 02/17/20 02/17/20 Range/Units 10:39 10:39 11:30 WBC 7.8 (4.0-10.0) 10^3/ uL RBC 2.50 L (4.1-5.3) 10^6/u L Hgb 7.5 L (11.5-15.3) g/dL Hct 25.3 L (37.0-47.0) % MCV 101.2 H (81-99) fL MCH 30.0 (28.0-34.0) pg MCHC 29.6 L (30.0-36.0) g/dL RDW 14.0 (12.1-15.1) % Plt Count 204 (130-400) 10^3/c mm MPV 10.6 H (7.4-10.4) fL Neut % (Auto) 76.8 % Lymph % (Auto) 14.4 % [place] % (Auto) 4.2 % Eos % (Auto) 2.2 % Baso % (Auto) 0.4 % Neut # (Auto) 6.01 (1.8-7.7) 10^3/u L Lymph # (Auto) 1.1 (0.8-4.8) 10^3/u L [place] # (Auto) 0.3 (0.2-0.9) 10^3/u L Eos # (Auto) 0.2 (0.0-0.8) 10^3/u L Baso # (Auto) 0.0 (0.0-0.1) 10^3/u L Nucleated RBC % (a uto) 0 % Nucleated RBCs # 0.0 /100WBC Sodium 139 (136-145) mmol/L Potassium 4.1 (3.5-5.1) mmol/L Chloride 107 (98-107) mmol/L Carbon Dioxide 24 (22-29) mmol/L Anion Gap 12.1 (5-19) BUN 8 (6-20) mg/dL Creatinine 0.6 (0.5-0.9) mg/dL GFR Calculation 111.3 (90-130) mL/min Glucose 93 (65-115) mg/dL Calculated Osmolal ity 284 L (285-295) mOsm/k g Calcium 8.5 (8.5-10.5) mg/dL Total Bilirubin 0.2 (0.15-1.2) mg/dL AST 27 (0-32) U/L ALT 21 (0-33) U/L Alkaline Phosphata se 90 (35-105) IU/L NT-Pro-B Natriuret Pep 367 H (0-125) pg/mL Total Protein 6.3 L (6.6-8.7) g/dL Albumin 3.1 L (3.5-5.2) g/dL Globulin 3.2 (1.3-4.6) g/dL Urine Color Straw (Yellow) Urine Appearance Sl hazy (CLEAR) Urine pH 8 H (5-7) Ur Specific Gravit y 1.010 (1.005-1.030) Urine Protein Neg (Negative) Urine Glucose (UA) Norm (Normal) Urine Ketones Negative (Negative) Urine Blood 3+ H (Negative) Urine Nitrate Negative (Negative) Urine Bilirubin Neg (NEGATIVE) Prot Sulfosalicyli c Acd Negative (Negative) Urine Urobilinogen Norm (Negative) mg/dL Ur Leukocyte Kiki ase Trace H (Negative) Urine RBC 10-15 H (0-2) /hpf Urine WBC 10-15 H (0-5) /hpf Ur Squamous Epith Cells 10-15 H (0-5) Amorphous Sediment Not Reportable Urine Bacteria Trace (NONE) Imaging Data^: CXR: Radiologist's impression: [place] [address] XRay Report Signed Patient: Amira Juarez Unit #: [id number] : 1980 Age/Sex: 39 / F ADM Date: 02/17/20 Loc: ER Room/Bed: Attending Dr: Ordering Provider/Ordering MD: Aminta Austin Date of Service: 02/17/20 Procedure(s): XR chest 1V portable [id number] Accession Number(s): [id number] Report Number: [id number] PROCEDURE INFORMATION: Exam: XR Chest, 1 View Exam date and time: 02/17/2020 8:40 AM Age: 39 years old Clinical indication: Type not specified; Patient HX: PT had an emergency csection 02/12/2020, chest pain began this am, PT states confused x2 days TECHNIQUE: Imaging protocol: XR of the chest Views: 1 view. COMPARISON: No relevant prior studies available. FINDINGS: Lungs: Artifact overlying the apex of the left hemithorax. Poor inspiration. No lung consolidation or pulmonary edema. Pleural space: No pleural effusion or pneumothorax. Heart/Mediastinum: The cardiac silhouette is not enlarged. The mediastinal contours are normal. Bones/joints: No acute osseous abnormality. XR/XR chest 1V portable [id number] IMPRESSION: No acute abnormality. Dictated By: Deondre Mendoza Signed By: Deondre Mendoza Signed Date/Time: 02/17/20927 DD/ 6 EKG Data^: EKG 1: EKG interpretation date: 02/17/20 EKG interpretation time: 09:00 Interpretation: Sinus rhythm Rate [address] elevation or depression changes noted Also reviewed by Dr. Koch Computer generated interpretation: Chest X-Ray 02/17/20 08:39 IMPRESSION: No acute abnormality. Discharge Plan Discharge Patient Disposition: Home Clinical Impression: Spinal and epidural anesthesia-induced headache during puerperium Condition: Stable Prescriptions: No Action Vitamin 27 mg iron- 800 mcg Tablet 1 tab PO DAILY RF: 0 ibuprofen 800 mg Tablet 800 mg PO TID PRN (Reason: Abdominal Discomfort) Qty: 30 RF: 0 hydrocodone-acetaminophen 5-325 mg Tablet 1 - 2 tab PO Q4H PRN (Reason: Moderate To Severe Pain) 5 Days Qty: 20 RF: 0 docusate sodium 100 mg Capsule 100 mg PO BID Qty: 60 RF: 0 Discharge Orders: Discharge Order (Routine); Ordered 02/17/20 Ordered By: Aminta Austin Activity Restrictions/Additional Instructions: As discussed you did not want a blood patch for treatment of your spinal headache. Please be aware of headache and neck pain worsens or becomes severe you need to return to the emergency department for reevaluation. You need to continue following up with your primary care provider for treatment of your anemia/low blood counts. Please return to the emergency department for chest pain, shortness of breath, difficulty breathing, worsening swelling to your legs, or any other concerns you may have. Discharge Date/Time: 02/17/20 12:22 Coding Level of Care Code ED Ict Help Desk Officer for Chg Fwd Exam Comprehensive
--- NOTE | 2020-02-17 08:39 | ECG_ITS ---
[facility] Test Date: 2020-02-17 Pat Name: Amira Juarez Department: Room: Gender: Female Center Maker Hand: : 1980 Requested By: Aminta Austin Order Number: [id number] Callie MD: Lazara Moore M.D. Measurements Intervals [place] Rate: 69 P: 17 NM: 160 QRS: 15 QRSD: 78 T: 11 QT: 369 QTc: 397 Interpretive Statements SINUS RHYTHM Compared to ECG 10/23/2018 07:14:57 Sinus bradycardia no longer present Electronically Signed On 02-18-2020 8:25:12 CDT by Lazara Moore M.D. [id number]
[2020-02-17] MEDS: diphenhydrAMINE 50 mg/mL SDV 1mL IM (09:09)
[2020-02-17] MEDS: dexamethasone 10 mg/mL INJ 8 MG IM (09:10)
[2020-02-17] MEDS: HYDROcodone-acetaminophen 5-325 mg Tablet 1 TAB PO (10:04)
[2020-02-17 10:30] VITALS: BP 117/95; PULSE 67; RESP 18; O2SAT 99
[2020-02-17 10:44] LABS: Basophils % 0.4 %; Eosinophils # 0.2 10^3/uL (0.0-0.8); Eosinophils % 2.2 %; Hematocrit 25.3 % (37.0-47.0); Hemoglobin 7.5 g/dL (11.5-15.3); Lymphocytes # 1.1 10^3/uL (0.8-4.8); Lymphocytes % 14.4 %; Mean Corpuscular HGB Conc 29.6 g/dL (30.0-36.0); Mean Corpuscular Volume 101.2 fL (81-99); Mean Platelet Volume 10.6 fL (7.4-10.4); Monocytes # 0.3 10^3/uL (0.2-0.9); Monocytes % 4.2 %; Neutrophils # 6.01 10^3/uL (1.8-7.7); Neutrophils % 76.8 %; Nucleated Red Blood Cells % 0 %; Platelet Count 204 10^3/cmm (130-400); White Blood Count 7.8 10^3/uL (4.0-10.0)
[2020-02-17 11:22] LABS: Alanine Aminotransferase 21 U/L (0-33); Albumin Level 3.1 g/dL (3.5-5.2); Alkaline Phosphatase 90 IU/L (35-105); Aspartate Amino Transferase 27 U/L (0-32); Blood Urea Nitrogen 8 mg/dL (6-20); Calcium 8.5 mg/dL (8.5-10.5); Carbon Dioxide 24 mmol/L (22-29); Chloride 107 mmol/L (98-107); Globulin 3.2 g/dL (1.3-4.6); Glomerular Filtration Rate 111.3 mL/min (90-130); Glucose 93 mg/dL (65-115); NT Pro B Type Natriuretic Pept 367 pg/mL (0-125); Osmolality Calculated 284 mOsm/kg (285-295); Sodium 139 mmol/L (136-145); Total Bilirubin 0.2 mg/dL (0.15-1.2); Total Protein 6.3 g/dL (6.6-8.7)
[2020-02-17 11:37] LABS: Anion Gap 12.1 (5-19); Potassium 4.1 mmol/L (3.5-5.1)
[2020-02-17 12:03] LABS: Add Urine Microscopic? YES; Bilirubin Urine Neg (NEGATIVE); Blood Urine 3+ (Negative); Glucose Urine UA Norm (Normal); Ketones Urine Negative (Negative); Leukocyte Esterase Urine Trace (Negative); Nitrate Urine Negative (Negative); Protein Urine Neg (Negative); Urine Appearance SL Hazy (CLEAR); Urine Color Straw (Yellow); Urobilinogen Urine Norm (Negative); pH Urine 8 (5-7)
[2020-02-17 12:04] LABS: Add Urine Culture? No; Bacteria Urine TRACE; Sulfosalicylic Acid Urine Negative (Negative)
[2020-02-17 12:22] VITALS: BP 137/75; PULSE 69; RESP 18; O2SAT 100
== END 2020-02-17 12:22 | disposition home or self-care (01) ==
PROVIDERS: Emergency Provider Physician Assistant
DX: O89.4 Spinal and epidural anesthesia-induced headache during the puerperium (principal)
CPT/HCPCS: 12345; 36415; 71045; 80053; 81001; 83880; 85025; 93005; 96372; 99282; 99283; J1100; J1200

== ENCOUNTER 2020-02-17 15:36 | Observation (INO) | payer MEDICAID, SELFPAY ==
[2020-02-17] VITALS (20 sets, daily range): BP systolic 118–150; BP diastolic 69–88; PULSE 41–99; RESP 15–18; TEMP 36.6–37; O2SAT 97–100; BMI 29.9
--- NOTE | 2020-02-17 15:52 | ECG_ITS ---
[facility] Test Date: 2020-02-17 Pat Name: Amria Juarez Department: Room: Gender: Female Instructor Dramatic Arts: : 1980 Requested By: Aminta Austin Order Number: [id number] Callie MD: Lazara Moore M.D. Measurements Intervals [place] Rate: 65 P: 29 NC: 151 QRS: 23 QRSD: 75 T: 36 QT: 398 QTc: 416 Interpretive Statements SINUS RHYTHM Compared to ECG 02/17/2020 09:00:29 No significant changes Electronically Signed On 02-18-2020 8:20:58 CDT by Lazara Moore M.D. [id number]
--- NOTE | 2020-02-17 15:53 | ED_ITS ---
Documented by User: AJAY Metz 02/20/20 07:19 HPI - General Adult General: Chief complaint: Weakness Stated complaint: PT FEELS THAT THERE IS SOMTHING WRONG Time Seen by Provider: 02/17/20 15:39 Source: patient Mode of arrival: ambulatory Limitations: no limitations History of Present Illness: HPI narrative: Patient is a 39-year-old female pre sents to ED today for the second time for evaluation. Patient states after she was discharged just a few hours ago she went home and tried to rest. She states she was lying in bed when she began screaming to her that she was . She states she was having an out of body experience and kept telling her that she was already . She states she got up and went to the kitchen to grab a glass of water and states she poured the water on her head. Patient tells me she felt like she was surrounded by white lights. She apparently had her drive her to an ambulance bay where she told them she thought her uterus had ruptured and she was bleeding out internally even though she was not complaining of abdominal pain. Patient upon arrival appears in no acute distress. She often tells me that she feels crazy . She is not complaining of any of the symptoms that I saw her for on the previous visit. Associated symptoms: Deny chest pain, dyspnea, headache(s), nausea, rash, palpitations, syncope or vomiting Review of Systems Const: Denies: fever(s) or chills Eyes: Denies: change in vision or blurry vision Card: Denies: chest pain, palpitations, irregular heart rhythm, lightheadedness, syncope or dyspnea on exertion Resp: Denies: dyspnea, productive cough or pain on inspiration GI: Denies: abdominal pain, nausea, vomiting, heartburn or diarrhea : Denies: dysuria Musc: Denies: neck pain, back pain or joint pain Skin/Breast: Denies: rash Neuro: Reports: behavioral changes; Denies: headache(s), numbness in extremities, weakness in extremities, sensory changes, difficulty walking, dizziness, Slurred speech present, difficulty communicating thoughts, seizure-like activity or involuntary movements Psych: Denies: visual hallucinations, auditory hallucinations, suicidal ideation or homicidal ideation [facility] ED PFSH: Medical History (Updated 02/17/20 @ 20:48 by Pedro Bass DO) Brief psychotic disorder with onset This patient is at risk of repeat episodes in subsequent pregnancies, about 1 in 7 Social History (Updated 02/12/20 @ 17:56 by Sandie Chavez MD) Smoking and tobacco status: never smoked Second hand smoke exposure: No Alcohol intake: never Number of children: 5 Female Reproductive History: Date of last menstrual period: 05/07/19 Para: 5 Spontaneous abortions: No Physical Exam Const: COMMON NORMALS: no acute distress, average body habitus, patient oriented x3, no limitations, healthy appearing, alert and well nourished GENERAL APPEARANCE: cooperative and anxious ORIENTATION/CONSCIOUSNESS: Yes oriented to person, Yes oriented to place and Yes oriented to time HENMT: COMMON NORMALS: normocephalic and atraumatic HEAD & SCALP: normocephalic and atraumatic Eye: GENERAL EYE: appearance normal, both eyes and all related structures Neck/C-Spine: COMMON NORMALS: full ROM, no lymphadenopathy and no meningeal signs Resp: COMMON NORMALS: normal respiratory effort and clear to auscultation bilaterally AUSCULTATION: clear to auscultation bilaterally Cardio: COMMON NORMALS: regular rate and regular rhythm RATE: regular rate RHYTHM: regular rhythm GI: COMMON NORMALS: Normal to inspection, nondistended, normoactive bowel sounds present, Soft to palpation, No hepatosplenomegaly present and no masses PALPATION: Yes Soft to palpation, Yes Tenderness to palpation present (GI) (minimal tenderness overlying ; normal for 5d post ) and Yes No hepatosplenomegaly present Extremity: OTHER: bilateral LE non-pitting edema Neuro: SANCHEZ COMA SCALE: document GCS findings Sanchez coma scale eye opening: Spontaneous Hurley coma scale verbal response: Orientated Sanchez coma scale motor response: Obey commands Sanchez coma scale total score: 15 COMMON NORMALS: patient oriented x3, CN's II-XII intact bilaterally, moves all extremities, no focal motor deficits, no sensory deficits noted and gait normal SENSORIUM/ORIENTATION: Yes alert, Yes oriented to person, Yes oriented to place and Yes oriented to time MENINGEAL SIGNS: Yes no meningeal signs Skin: COMMON NORMALS: no rashes or lesions noted NARRATIVE SKIN EXAM: pallor-this was noted on last visit as well GENERAL SKIN EXAM: no rashes or lesions noted Course Consultations: Consultation #1: Dr. Rowe- graciously agrees to come see patient in ED for psychiatric assessment. Vital Signs: Vital signs: Vital Signs Temperature 98.5 F 02/17/20 23:15 Pulse Rate 43 L 02/17/20 23:31 Respiratory Rate 17 02/17/20 23:31 Blood Pressure 134/72 02/17/20 23:31 Pulse Oximetry 99 02/17/20 23:31 MDM - General Adult MDM Narrative: Medical decision making narrative: This is patient's second visit to the emergency department in a short amount of time. Dr. Koch has also seen and evaluated patient on this second visit. Her BNP is slightly more elevated than previously. Dr. Koch has requested a d-dimer which was subsequently elevated therefore decisions were made to order echocardiogram and CTA. Dr. Koch has spoken to Dr. Chavez as she was the delivering physician. Dr. Chavez mentioned that patient had fired several nurses while on the OB floor and accused nurses of poisoning her. I am concerned about patient's current mental state and her ability to care for a 5-day-old. Her in the room does seem competent. Dr. Rowe is coming to evaluate patient from a psychiatric standpoint. I think medically she is stable although would benefit from a transfusion. Her hemoglobin is higher today than when she left the hospital however this might improve patient's symptoms/mental status. Care will be transferred to Dr. Koch at 1700/shift change. Lab Data: Labs: Lab Results 02/17/20 02/17/20 02/17/20 Range/Units 16:00 16:00 16:14 WBC 9.7 (4.0-10.0) 10^3/ uL RBC 2.51 L (4.1-5.3) 10^6/u L Hgb 7.6 L (11.5-15.3) g/dL Hct 25.1 L (37.0-47.0) % MCV 100.0 H (81-99) fL MCH 30.3 (28.0-34.0) pg MCHC 30.3 (30.0-36.0) g/dL RDW 14.1 (12.1-15.1) % Plt Count 248 (130-400) 10^3/c mm MPV 10.2 (7.4-10.4) fL Neut % (Auto) 89.3 % Lymph % (Auto) 6.5 % [place] % (Auto) 1.2 % Eos % (Auto) 0.1 % Baso % (Auto) 0.1 % Neut # (Auto) 8.67 H (1.8-7.7) 10^3/u L Lymph # (Auto) 0.6 L (0.8-4.8) 10^3/u L [place] # (Auto) 0.1 L (0.2-0.9) 10^3/u L Eos # (Auto) 0.0 (0.0-0.8) 10^3/u L Baso # (Auto) 0.0 (0.0-0.1) 10^3/u L Nucleated RBC % (a uto) 0 % Nucleated RBCs # 0.0 /100WBC D-Dimer (0-0.59) ug/mIFE U Sodium (136-145) mmol/L Potassium (3.5-5.1) mmol/L Chloride (98-107) mmol/L Carbon Dioxide (22-29) mmol/L Anion Gap (5-19) BUN (6-20) mg/dL Creatinine (0.5-0.9) mg/dL GFR Calculation (90-130) mL/min Glucose (65-115) mg/dL Calculated Osmolal ity (285-295) mOsm/k g Lactic Acid (0.5-2.2) mmol/L Calcium (8.5-10.5) mg/dL Total Bilirubin (0.15-1.2) mg/dL AST (0-32) U/L ALT (0-33) U/L Alkaline Phosphata se (35-105) IU/L Troponin T Gen 5 n g/L (0-10) ng/L NT-Pro-B Natriuret Pep (0-125) pg/mL Total Protein (6.6-8.7) g/dL Albumin (3.5-5.2) g/dL Globulin (1.3-4.6) g/dL Urine Color Miracle (Yellow) Urine Appearance Cloudy (CLEAR) Urine pH 8 H (5-7) Ur Specific Gravit y 1.010 (1.005-1.030) Urine Protein 1+ H (Negative) Urine Glucose (UA) Norm (Normal) Urine Ketones Negative (Negative) Urine Blood 3+ H (Negative) Urine Nitrate Negative (Negative) Urine Bilirubin Neg (NEGATIVE) Prot Sulfosalicyli c Acd Positive (Negative) Urine Urobilinogen Norm (Negative) mg/dL Ur Leukocyte Kiki ase 2+ H (Negative) Urine RBC Too numerous to c nt H (0-2) /hpf Urine WBC 5-10 H (0-5) /hpf Ur Squamous Epith Cells 0-4 H (0-5) Amorphous Sediment Not Reportable Urine Bacteria Trace (NONE) Urine Mucus Trace Salicylates (3-10) mg/dL Urine Opiates Scre en Positive H (Negative) ng/mL Acetaminophen (10-30) ug/mL Ur Barbiturates Sc reen Negative (Negative) ng/mL Ur Phencyclidine S crn Negative (Negative) ng/mL Ur Amphetamines Sc reen Negative (Negative) ng/mL U Benzodiazepines Scrn Negative (Negative) ng/mL Urine Cocaine Scre en Negative (Negative) ng/mL U Marijuana (THC) Screen Negative (Negative) ng/mL Ethyl Alcohol (0-10) mg/dL SARS-CoV-2 Ag (Rap id) (Negative) Blood Type Rho(D) Type Antibody Screen Crossmatch 02/17/20 02/17/20 02/17/20 Range/Units 16:14 16:14 16:14 WBC (4.0-10.0) 10^3/ uL RBC (4.1-5.3) 10^6/u L Hgb (11.5-15.3) g/dL Hct (37.0-47.0) % MCV (81-99) fL MCH (28.0-34.0) pg MCHC (30.0-36.0) g/dL RDW (12.1-15.1) % Plt Count (130-400) 10^3/c mm MPV (7.4-10.4) fL Neut % (Auto) % Lymph % (Auto) % [place] % (Auto) % Eos % (Auto) % Baso % (Auto) % Neut # (Auto) (1.8-7.7) 10^3/u L Lymph # (Auto) (0.8-4.8) 10^3/u L [place] # (Auto) (0.2-0.9) 10^3/u L Eos # (Auto) (0.0-0.8) 10^3/u L Baso # (Auto) (0.0-0.1) 10^3/u L Nucleated RBC % (a uto) % Nucleated RBCs # /100WBC D-Dimer (0-0.59) ug/mIFE U Sodium 139 (136-145) mmol/L Potassium 4.4 (3.5-5.1) mmol/L Chloride 107 (98-107) mmol/L Carbon Dioxide 22 (22-29) mmol/L Anion Gap 14.4 (5-19) BUN 11 (6-20) mg/dL Creatinine 0.7 (0.5-0.9) mg/dL GFR Calculation 93.2 (90-130) mL/min Glucose 127 H (65-115) mg/dL Calculated Osmolal ity 286 (285-295) mOsm/k g Lactic Acid 1.0 (0.5-2.2) mmol/L Calcium 8.9 (8.5-10.5) mg/dL Total Bilirubin 0.2 (0.15-1.2) mg/dL AST 22 (0-32) U/L ALT 21 (0-33) U/L Alkaline Phosphata se 91 (35-105) IU/L Troponin T Gen 5 n g/L 6 (0-10) ng/L NT-Pro-B Natriuret Pep 498 H (0-125) pg/mL Total Protein 6.0 L (6.6-8.7) g/dL Albumin 3.4 L (3.5-5.2) g/dL Globulin 2.6 (1.3-4.6) g/dL Urine Color (Yellow) Urine Appearance (CLEAR) Urine pH (5-7) Ur Specific Gravit y (1.005-1.030) Urine Protein (Negative) Urine Glucose (UA) (Normal) Urine Ketones (Negative) Urine Blood (Negative) Urine Nitrate (Negative) Urine Bilirubin (NEGATIVE) Prot Sulfosalicyli c Acd (Negative) Urine Urobilinogen (Negative) mg/dL Ur Leukocyte Kiki ase (Negative) Urine RBC (0-2) /hpf Urine WBC (0-5) /hpf Ur Squamous Epith Cells (0-5) Amorphous Sediment Urine Bacteria (NONE) Urine Mucus Salicylates (3-10) mg/dL Urine Opiates Scre en (Negative) ng/mL Acetaminophen (10-30) ug/mL Ur Barbiturates Sc reen (Negative) ng/mL Ur Phencyclidine S crn (Negative) ng/mL Ur Amphetamines Sc reen (Negative) ng/mL U Benzodiazepines Scrn (Negative) ng/mL Urine Cocaine Scre en (Negative) ng/mL U Marijuana (THC) Screen (Negative) ng/mL Ethyl Alcohol (0-10) mg/dL SARS-CoV-2 Ag (Rap id) (Negative) Blood Type Rho(D) Type Antibody Screen Crossmatch 02/17/20 02/17/20 02/17/20 Range/Units 16:14 16:14 16:14 WBC (4.0-10.0) 10^3/ uL RBC (4.1-5.3) 10^6/u L Hgb (11.5-15.3) g/dL Hct (37.0-47.0) % MCV (81-99) fL MCH (28.0-34.0) pg MCHC (30.0-36.0) g/dL RDW (12.1-15.1) % Plt Count (130-400) 10^3/c mm MPV (7.4-10.4) fL Neut % (Auto) % Lymph % (Auto) % [place] % (Auto) % Eos % (Auto) % Baso % (Auto) % Neut # (Auto) (1.8-7.7) 10^3/u L Lymph # (Auto) (0.8-4.8) 10^3/u L [place] # (Auto) (0.2-0.9) 10^3/u L Eos # (Auto) (0.0-0.8) 10^3/u L Baso # (Auto) (0.0-0.1) 10^3/u L Nucleated RBC % (a uto) % Nucleated RBCs # /100WBC D-Dimer 8.14 H (0-0.59) ug/mIFE U Sodium (136-145) mmol/L Potassium (3.5-5.1) mmol/L Chloride (98-107) mmol/L Carbon Dioxide (22-29) mmol/L Anion Gap (5-19) BUN (6-20) mg/dL Creatinine (0.5-0.9) mg/dL GFR Calculation (90-130) mL/min Glucose (65-115) mg/dL Calculated Osmolal ity (285-295) mOsm/k g Lactic Acid (0.5-2.2) mmol/L Calcium (8.5-10.5) mg/dL Total Bilirubin (0.15-1.2) mg/dL AST (0-32) U/L ALT (0-33) U/L Alkaline Phosphata se (35-105) IU/L Troponin T Gen 5 n g/L (0-10) ng/L NT-Pro-B Natriuret Pep (0-125) pg/mL Total Protein (6.6-8.7) g/dL Albumin (3.5-5.2) g/dL Globulin (1.3-4.6) g/dL Urine Color (Yellow) Urine Appearance (CLEAR) Urine pH (5-7) Ur Specific Gravit y (1.005-1.030) Urine Protein (Negative) Urine Glucose (UA) (Normal) Urine Ketones (Negative) Urine Blood (Negative) Urine Nitrate (Negative) Urine Bilirubin (NEGATIVE) Prot Sulfosalicyli c Acd (Negative) Urine Urobilinogen (Negative) mg/dL Ur Leukocyte Kiki ase (Negative) Urine RBC (0-2) /hpf Urine WBC (0-5) /hpf Ur Squamous Epith Cells (0-5) Amorphous Sediment Urine Bacteria (NONE) Urine Mucus Salicylates < 0.3 L (3-10) mg/dL Urine Opiates Scre en (Negative) ng/mL Acetaminophen < 5.0 L (10-30) ug/mL Ur Barbiturates Sc reen (Negative) ng/mL Ur Phencyclidine S crn (Negative) ng/mL Ur Amphetamines Sc reen (Negative) ng/mL U Benzodiazepines Scrn (Negative) ng/mL Urine Cocaine Scre en (Negative) ng/mL U Marijuana (THC) Screen (Negative) ng/mL Ethyl Alcohol < 10 (0-10) mg/dL SARS-CoV-2 Ag (Rap id) (Negative) Blood Type A Positive Rho(D) Type Positive Antibody Screen Negative Crossmatch See Detail 02/17/20 Range/Units 17:55 WBC (4.0-10.0) 10^3/ uL RBC (4.1-5.3) 10^6/u L Hgb (11.5-15.3) g/dL Hct (37.0-47.0) % MCV (81-99) fL MCH (28.0-34.0) pg MCHC (30.0-36.0) g/dL RDW (12.1-15.1) % Plt Count (130-400) 10^3/c mm MPV (7.4-10.4) fL Neut % (Auto) % Lymph % (Auto) % [place] % (Auto) % Eos % (Auto) % Baso % (Auto) % Neut # (Auto) (1.8-7.7) 10^3/u L Lymph # (Auto) (0.8-4.8) 10^3/u L [place] # (Auto) (0.2-0.9) 10^3/u L Eos # (Auto) (0.0-0.8) 10^3/u L Baso # (Auto) (0.0-0.1) 10^3/u L Nucleated RBC % (a uto) % Nucleated RBCs # /100WBC D-Dimer (0-0.59) ug/mIFE U Sodium (136-145) mmol/L Potassium (3.5-5.1) mmol/L Chloride (98-107) mmol/L Carbon Dioxide (22-29) mmol/L Anion Gap (5-19) BUN (6-20) mg/dL Creatinine (0.5-0.9) mg/dL GFR Calculation (90-130) mL/min Glucose (65-115) mg/dL Calculated Osmolal ity (285-295) mOsm/k g Lactic Acid (0.5-2.2) mmol/L Calcium (8.5-10.5) mg/dL Total Bilirubin (0.15-1.2) mg/dL AST (0-32) U/L ALT (0-33) U/L Alkaline Phosphata se (35-105) IU/L Troponin T Gen 5 n g/L (0-10) ng/L NT-Pro-B Natriuret Pep (0-125) pg/mL Total Protein (6.6-8.7) g/dL Albumin (3.5-5.2) g/dL Globulin (1.3-4.6) g/dL Urine Color (Yellow) Urine Appearance (CLEAR) Urine pH (5-7) Ur Specific Gravit y (1.005-1.030) Urine Protein (Negative) Urine Glucose (UA) (Normal) Urine Ketones (Negative) Urine Blood (Negative) Urine Nitrate (Negative) Urine Bilirubin (NEGATIVE) Prot Sulfosalicyli c Acd (Negative) Urine Urobilinogen (Negative) mg/dL Ur Leukocyte Kiki ase (Negative) Urine RBC (0-2) /hpf Urine WBC (0-5) /hpf Ur Squamous Epith Cells (0-5) Amorphous Sediment Urine Bacteria (NONE) Urine Mucus Salicylates (3-10) mg/dL Urine Opiates Scre en (Negative) ng/mL Acetaminophen (10-30) ug/mL Ur Barbiturates Sc reen (Negative) ng/mL Ur Phencyclidine S crn (Negative) ng/mL Ur Amphetamines Sc reen (Negative) ng/mL U Benzodiazepines Scrn (Negative) ng/mL Urine Cocaine Scre en (Negative) ng/mL U Marijuana (THC) Screen (Negative) ng/mL Ethyl Alcohol (0-10) mg/dL SARS-CoV-2 Ag (Rap id) Negative (Negative) Blood Type Rho(D) Type Antibody Screen Crossmatch Discharge Plan Discharge Patient Disposition: Placed in Observation Admit Provider: Sandie Chavez Clinical Impression: Anemia Qualifiers: Anemia type: unspecified type Qualified Code(s): D64.9 - Anemia, unspecified Condition: Stable Discharge Diet: Usual diet Discharge Activity: Resume usual activity Patient Instructions: Furosemide (By mouth), Blood Transfusion (DC) Discharge Date/Time: 02/17/20 21:50 Sign Out Sign Out Data: Patient Sign Out occurred on 02/17/20 at 17:50. Patient's care was discussed, and care was transferred from to Mohini Koch. Coding Level of Care Code ED [employer] Signal Processing Engineer for [facility] Fwd Exam Comprehensive Documented by User: Pedro Bass DO 02/17/20 20:48 HPI - General Adult General: Chief complaint: Weakness Stated complaint: PT FEELS THAT THERE IS SOMTHING WRONG Time Seen by Provider: 02/17/20 15:39 PFSH ED PFSH: Medical History (Updated 02/17/20 @ 20:48 by Pedro Bass DO) Brief psychotic disorder with onset This patient is at risk of repeat episodes in subsequent pregnancies, about 1 in 7 Social History (Updated 02/12/20 @ 17:56 by Sandie Chavez MD) Smoking and tobacco status: never smoked Second hand smoke exposure: No Alcohol intake: never Number of children: 5 Course Consultations: Consultation #1: Scott Consultation #2: Jae Vital Signs: Vital signs: Vital Signs Temperature 98.5 F 02/17/20 23:15 Pulse Rate 43 L 02/17/20 23:31 Respiratory Rate 17 02/17/20 23:31 Blood Pressure 134/72 02/17/20 23:31 Pulse Oximetry 99 02/17/20 23:31 MDM - General Adult MDM Narrative: Medical decision making narrative: 39-year-old female checked o ut to me at shift change by Dr. Oliveira. This lady had multiple complaints including chest discomfort and shortness of breath along with leg swelling. Her echo reads a normal LV function of 60 to 65%. Her CTA shows no pulmonary embolus. There is perhaps slight pneumonitis from edema. Her BNP is only 300. Edema likely is from anemia, as her hemoglobin is quite low. She is transfused 2 units. 1 unit is in, she will go to OB as an outpatient in a bed for her second unit. There was concern over the patient's mental capacity/status and whether or not she had psychosis. She was evaluated by Dr. Rowe, from psychiatry in the ER. His initial thought was that she may indeed have psychosis. He believes that the transfusion seems to be helping her condition, and that he would elect to not treat at this point. He has visited extensively with her, and placed a consult on the chart. She will go up to OB for outpatient in a bed transfusion. Lab Data: Labs: Lab Results 02/17/20 02/17/20 02/17/20 Range/Units 16:00 16:00 16:14 WBC 9.7 (4.0-10.0) 10^3/ uL RBC 2.51 L (4.1-5.3) 10^6/u L Hgb 7.6 L (11.5-15.3) g/dL Hct 25.1 L (37.0-47.0) % MCV 100.0 H (81-99) fL MCH 30.3 (28.0-34.0) pg MCHC 30.3 (30.0-36.0) g/dL RDW 14.1 (12.1-15.1) % Plt Count 248 (130-400) 10^3/c mm MPV 10.2 (7.4-10.4) fL Neut % (Auto) 89.3 % Lymph % (Auto) 6.5 % [place] % (Auto) 1.2 % Eos % (Auto) 0.1 % Baso % (Auto) 0.1 % Neut # (Auto) 8.67 H (1.8-7.7) 10^3/u L Lymph # (Auto) 0.6 L (0.8-4.8) 10^3/u L [place] # (Auto) 0.1 L (0.2-0.9) 10^3/u L Eos # (Auto) 0.0 (0.0-0.8) 10^3/u L Baso # (Auto) 0.0 (0.0-0.1) 10^3/u L Nucleated RBC % (a uto) 0 % Nucleated RBCs # 0.0 /100WBC D-Dimer (0-0.59) ug/mIFE U Sodium (136-145) mmol/L Potassium (3.5-5.1) mmol/L Chloride (98-107) mmol/L Carbon Dioxide (22-29) mmol/L Anion Gap (5-19) BUN (6-20) mg/dL Creatinine (0.5-0.9) mg/dL GFR Calculation (90-130) mL/min Glucose (65-115) mg/dL Calculated Osmolal ity (285-295) mOsm/k g Lactic Acid (0.5-2.2) mmol/L Calcium (8.5-10.5) mg/dL Total Bilirubin (0.15-1.2) mg/dL AST (0-32) U/L ALT (0-33) U/L Alkaline Phosphata se (35-105) IU/L Troponin T Gen 5 n g/L (0-10) ng/L NT-Pro-B Natriuret Pep (0-125) pg/mL Total Protein (6.6-8.7) g/dL Albumin (3.5-5.2) g/dL Globulin (1.3-4.6) g/dL Urine Color Miracle (Yellow) Urine Appearance Cloudy (CLEAR) Urine pH 8 H (5-7) Ur Specific Gravit y 1.010 (1.005-1.030) Urine Protein 1+ H (Negative) Urine Glucose (UA) Norm (Normal) Urine Ketones Negative (Negative) Urine Blood 3+ H (Negative) Urine Nitrate Negative (Negative) Urine Bilirubin Neg (NEGATIVE) Prot Sulfosalicyli c Acd Positive (Negative) Urine Urobilinogen Norm (Negative) mg/dL Ur Leukocyte Kiki ase 2+ H (Negative) Urine RBC Too numerous to c nt H (0-2) /hpf Urine WBC 5-10 H (0-5) /hpf Ur Squamous Epith Cells 0-4 H (0-5) Amorphous Sediment Not Reportable Urine Bacteria Trace (NONE) Urine Mucus Trace Salicylates (3-10) mg/dL Urine Opiates Scre en Positive H (Negative) ng/mL Acetaminophen (10-30) ug/mL Ur Barbiturates Sc reen Negative (Negative) ng/mL Ur Phencyclidine S crn Negative (Negative) ng/mL Ur Amphetamines Sc reen Negative (Negative) ng/mL U Benzodiazepines Scrn Negative (Negative) ng/mL Urine Cocaine Scre en Negative (Negative) ng/mL U Marijuana (THC) Screen Negative (Negative) ng/mL Ethyl Alcohol (0-10) mg/dL SARS-CoV-2 Ag (Rap id) (Negative) Blood Type Rho(D) Type Antibody Screen Crossmatch 02/17/20 02/17/20 02/17/20 Range/Units 16:14 16:14 16:14 WBC (4.0-10.0) 10^3/ uL RBC (4.1-5.3) 10^6/u L Hgb (11.5-15.3) g/dL Hct (37.0-47.0) % MCV (81-99) fL MCH (28.0-34.0) pg MCHC (30.0-36.0) g/dL RDW (12.1-15.1) % Plt Count (130-400) 10^3/c mm MPV (7.4-10.4) fL Neut % (Auto) % Lymph % (Auto) % [place] % (Auto) % Eos % (Auto) % Baso % (Auto) % Neut # (Auto) (1.8-7.7) 10^3/u L Lymph # (Auto) (0.8-4.8) 10^3/u L [place] # (Auto) (0.2-0.9) 10^3/u L Eos # (Auto) (0.0-0.8) 10^3/u L Baso # (Auto) (0.0-0.1) 10^3/u L Nucleated RBC % (a uto) % Nucleated RBCs # /100WBC D-Dimer (0-0.59) ug/mIFE U Sodium 139 (136-145) mmol/L Potassium 4.4 (3.5-5.1) mmol/L Chloride 107 (98-107) mmol/L Carbon Dioxide 22 (22-29) mmol/L Anion Gap 14.4 (5-19) BUN 11 (6-20) mg/dL Creatinine 0.7 (0.5-0.9) mg/dL GFR Calculation 93.2 (90-130) mL/min Glucose 127 H (65-115) mg/dL Calculated Osmolal ity 286 (285-295) mOsm/k g Lactic Acid 1.0 (0.5-2.2) mmol/L Calcium 8.9 (8.5-10.5) mg/dL Total Bilirubin 0.2 (0.15-1.2) mg/dL AST 22 (0-32) U/L ALT 21 (0-33) U/L Alkaline Phosphata se 91 (35-105) IU/L Troponin T Gen 5 n g/L 6 (0-10) ng/L NT-Pro-B Natriuret Pep 498 H (0-125) pg/mL Total Protein 6.0 L (6.6-8.7) g/dL Albumin 3.4 L (3.5-5.2) g/dL Globulin 2.6 (1.3-4.6) g/dL Urine Color (Yellow) Urine Appearance (CLEAR) Urine pH (5-7) Ur Specific Gravit y (1.005-1.030) Urine Protein (Negative) Urine Glucose (UA) (Normal) Urine Ketones (Negative) Urine Blood (Negative) Urine Nitrate (Negative) Urine Bilirubin (NEGATIVE) Prot Sulfosalicyli c Acd (Negative) Urine Urobilinogen (Negative) mg/dL Ur Leukocyte Kiki ase (Negative) Urine RBC (0-2) /hpf Urine WBC (0-5) /hpf Ur Squamous Epith Cells (0-5) Amorphous Sediment Urine Bacteria (NONE) Urine Mucus Salicylates (3-10) mg/dL Urine Opiates Scre en (Negative) ng/mL Acetaminophen (10-30) ug/mL Ur Barbiturates Sc reen (Negative) ng/mL Ur Phencyclidine S crn (Negative) ng/mL Ur Amphetamines Sc reen (Negative) ng/mL U Benzodiazepines Scrn (Negative) ng/mL Urine Cocaine Scre en (Negative) ng/mL U Marijuana (THC) Screen (Negative) ng/mL Ethyl Alcohol (0-10) mg/dL SARS-CoV-2 Ag (Rap id) (Negative) Blood Type Rho(D) Type Antibody Screen Crossmatch 02/17/20 02/17/20 02/17/20 Range/Units 16:14 16:14 16:14 WBC (4.0-10.0) 10^3/ uL RBC (4.1-5.3) 10^6/u L Hgb (11.5-15.3) g/dL Hct (37.0-47.0) % MCV (81-99) fL MCH (28.0-34.0) pg MCHC (30.0-36.0) g/dL RDW (12.1-15.1) % Plt Count (130-400) 10^3/c mm MPV (7.4-10.4) fL Neut % (Auto) % Lymph % (Auto) % [place] % (Auto) % Eos % (Auto) % Baso % (Auto) % Neut # (Auto) (1.8-7.7) 10^3/u L Lymph # (Auto) (0.8-4.8) 10^3/u L [place] # (Auto) (0.2-0.9) 10^3/u L Eos # (Auto) (0.0-0.8) 10^3/u L Baso # (Auto) (0.0-0.1) 10^3/u L Nucleated RBC % (a uto) % Nucleated RBCs # /100WBC D-Dimer 8.14 H (0-0.59) ug/mIFE U Sodium (136-145) mmol/L Potassium (3.5-5.1) mmol/L Chloride (98-107) mmol/L Carbon Dioxide (22-29) mmol/L Anion Gap (5-19) BUN (6-20) mg/dL Creatinine (0.5-0.9) mg/dL GFR Calculation (90-130) mL/min Glucose (65-115) mg/dL Calculated Osmolal ity (285-295) mOsm/k g Lactic Acid (0.5-2.2) mmol/L Calcium (8.5-10.5) mg/dL Total Bilirubin (0.15-1.2) mg/dL AST (0-32) U/L ALT (0-33) U/L Alkaline Phosphata se (35-105) IU/L Troponin T Gen 5 n g/L (0-10) ng/L NT-Pro-B Natriuret Pep (0-125) pg/mL Total Protein (6.6-8.7) g/dL Albumin (3.5-5.2) g/dL Globulin (1.3-4.6) g/dL Urine Color (Yellow) Urine Appearance (CLEAR) Urine pH (5-7) Ur Specific Gravit y (1.005-1.030) Urine Protein (Negative) Urine Glucose (UA) (Normal) Urine Ketones (Negative) Urine Blood (Negative) Urine Nitrate (Negative) Urine Bilirubin (NEGATIVE) Prot Sulfosalicyli c Acd (Negative) Urine Urobilinogen (Negative) mg/dL Ur Leukocyte Kiki ase (Negative) Urine RBC (0-2) /hpf Urine WBC (0-5) /hpf Ur Squamous Epith Cells (0-5) Amorphous Sediment Urine Bacteria (NONE) Urine Mucus Salicylates < 0.3 L (3-10) mg/dL Urine Opiates Scre en (Negative) ng/mL Acetaminophen < 5.0 L (10-30) ug/mL Ur Barbiturates Sc reen (Negative) ng/mL Ur Phencyclidine S crn (Negative) ng/mL Ur Amphetamines Sc reen (Negative) ng/mL U Benzodiazepines Scrn (Negative) ng/mL Urine Cocaine Scre en (Negative) ng/mL U Marijuana (THC) Screen (Negative) ng/mL Ethyl Alcohol < 10 (0-10) mg/dL SARS-CoV-2 Ag (Rap id) (Negative) Blood Type A Positive Rho(D) Type Positive Antibody Screen Negative Crossmatch See Detail 02/17/20 Range/Units 17:55 WBC (4.0-10.0) 10^3/ uL RBC (4.1-5.3) 10^6/u L Hgb (11.5-15.3) g/dL Hct (37.0-47.0) % MCV (81-99) fL MCH (28.0-34.0) pg MCHC (30.0-36.0) g/dL RDW (12.1-15.1) % Plt Count (130-400) 10^3/c mm MPV (7.4-10.4) fL Neut % (Auto) % Lymph % (Auto) % [place] % (Auto) % Eos % (Auto) % Baso % (Auto) % Neut # (Auto) (1.8-7.7) 10^3/u L Lymph # (Auto) (0.8-4.8) 10^3/u L [place] # (Auto) (0.2-0.9) 10^3/u L Eos # (Auto) (0.0-0.8) 10^3/u L Baso # (Auto) (0.0-0.1) 10^3/u L Nucleated RBC % (a uto) % Nucleated RBCs # /100WBC D-Dimer (0-0.59) ug/mIFE U Sodium (136-145) mmol/L Potassium (3.5-5.1) mmol/L Chloride (98-107) mmol/L Carbon Dioxide (22-29) mmol/L Anion Gap (5-19) BUN (6-20) mg/dL Creatinine (0.5-0.9) mg/dL GFR Calculation (90-130) mL/min Glucose (65-115) mg/dL Calculated Osmolal ity (285-295) mOsm/k g Lactic Acid (0.5-2.2) mmol/L Calcium (8.5-10.5) mg/dL Total Bilirubin (0.15-1.2) mg/dL AST (0-32) U/L ALT (0-33) U/L Alkaline Phosphata se (35-105) IU/L Troponin T Gen 5 n g/L (0-10) ng/L NT-Pro-B Natriuret Pep (0-125) pg/mL Total Protein (6.6-8.7) g/dL Albumin (3.5-5.2) g/dL Globulin (1.3-4.6) g/dL Urine Color (Yellow) Urine Appearance (CLEAR) Urine pH (5-7) Ur Specific Gravit y (1.005-1.030) Urine Protein (Negative) Urine Glucose (UA) (Normal) Urine Ketones (Negative) Urine Blood (Negative) Urine Nitrate (Negative) Urine Bilirubin (NEGATIVE) Prot Sulfosalicyli c Acd (Negative) Urine Urobilinogen (Negative) mg/dL Ur Leukocyte Kiki ase (Negative) Urine RBC (0-2) /hpf Urine WBC (0-5) /hpf Ur Squamous Epith Cells (0-5) Amorphous Sediment Urine Bacteria (NONE) Urine Mucus Salicylates (3-10) mg/dL Urine Opiates Scre en (Negative) ng/mL Acetaminophen (10-30) ug/mL Ur Barbiturates Sc reen (Negative) ng/mL Ur Phencyclidine S crn (Negative) ng/mL Ur Amphetamines Sc reen (Negative) ng/mL U Benzodiazepines Scrn (Negative) ng/mL Urine Cocaine Scre en (Negative) ng/mL U Marijuana (THC) Screen (Negative) ng/mL Ethyl Alcohol (0-10) mg/dL SARS-CoV-2 Ag (Rap id) Negative (Negative) Blood Type Rho(D) Type Antibody Screen Crossmatch Discharge Plan Discharge Patient Disposition: Placed in Observation Admit Provider: Sandie Chavez Clinical Impression: Anemia Qualifiers: Anemia type: unspecified type Qualified Code(s): D64.9 - Anemia, unspecified Condition: Stable Discharge Diet: Usual diet Discharge Activity: Resume usual activity Patient Instructions: Furosemide (By mouth), Blood Transfusion (DC) Discharge Date/Time: 02/17/20 21:50 Sign Out Sign Out Data: Patient Sign Out occurred on 02/17/20 at 17:50. Patient's care was discussed, and care was transferred from to Mohini Nicole Zee. Coding Level of Care Code ED Radar Signal Processing Engineer for Trae Fwd Exam Comprehensive
[2020-02-17] MEDS: sodium chloride 0.9% 1,000 ML 999 ML IV (16:22)
[2020-02-17 16:24] LABS: Basophils % 0.1 %; Eosinophils % 0.1 %; Hematocrit 25.1 % (37.0-47.0); Hemoglobin 7.6 g/dL (11.5-15.3); Lymphocytes # 0.6 10^3/uL (0.8-4.8); Lymphocytes % 6.5 %; Mean Corpuscular HGB Conc 30.3 g/dL (30.0-36.0); Mean Corpuscular Hemoglobin 30.3 pg (28.0-34.0); Mean Platelet Volume 10.2 fL (7.4-10.4); Monocytes # 0.1 10^3/uL (0.2-0.9); Monocytes % 1.2 %; Neutrophils # 8.67 10^3/uL (1.8-7.7); Neutrophils % 89.3 %; Nucleated Red Blood Cells % 0 %; Platelet Count 248 10^3/cmm (130-400); Red Blood Count 2.51 10^6/uL (4.1-5.3); Red Cell Distribution Width 14.1 % (12.1-15.1); White Blood Count 9.7 10^3/uL (4.0-10.0)
[2020-02-17 16:49] LABS: Add Urine Microscopic? YES; Bilirubin Urine Neg (NEGATIVE); Blood Urine 3+ (Negative); Glucose Urine UA Norm (Normal); Ketones Urine Negative (Negative); Leukocyte Esterase Urine 2+ (Negative); Nitrate Urine Negative (Negative); Protein Urine 1+ (Negative); Urine Appearance Cloudy (CLEAR); Urine Color Amber (Yellow); Urobilinogen Urine Norm (Negative); pH Urine 8 (5-7)
[2020-02-17 16:50] LABS: Sulfosalicylic Acid Urine Positive (Negative)
[2020-02-17 16:50] LABS: Troponin T (5th) Once 6 ng/L (0-10)
[2020-02-17 16:52] LABS: Bacteria Urine TRACE; RBC Urine TOO NUMEROUS TO CNT /hpf (0-2); Squamous Epithelial Cell Urine 0-4 (0-5)
[2020-02-17 16:53] LABS: Add Urine Culture? Yes; Mucus Urine TRACE
[2020-02-17 17:00] LABS: Alanine Aminotransferase 21 U/L (0-33); Albumin Level 3.4 g/dL (3.5-5.2); Alkaline Phosphatase 91 IU/L (35-105); Anion Gap 14.4 (5-19); Aspartate Amino Transferase 22 U/L (0-32); Blood Urea Nitrogen 11 mg/dL (6-20); Calcium 8.9 mg/dL (8.5-10.5); Carbon Dioxide 22 mmol/L (22-29); Chloride 107 mmol/L (98-107); Globulin 2.6 g/dL (1.3-4.6); Glomerular Filtration Rate 93.2 mL/min (90-130); Glucose 127 mg/dL (65-115); NT Pro B Type Natriuretic Pept 498 pg/mL (0-125); Osmolality Calculated 286 mOsm/kg (285-295); Potassium 4.4 mmol/L (3.5-5.1); Sodium 139 mmol/L (136-145); Total Bilirubin 0.2 mg/dL (0.15-1.2)
--- NOTE | 2020-02-17 17:04 | USCV_ITS ---
Amira Juarez Age: 39 Gender: F : 1980 Exam Date: 02/17/2020 17:36 Ordering Phys: Aminta Austin Technologist: Rachel Doe [place] [facility] [place]: ? Cardiomyopathy BP: / HR: 54 Rhythm: Sinus Technical Quality: Technically difficult study MEASUREMENTS (Male / Female) Normal Values 2D ECHO LV Diastolic Diameter PLAX 4.6 cm 4.2 - 5.9 / 3.9 - 5.3 cm LV Systolic Diameter PLAX 2.5 cm LV Chamber Size 4.7 cm IVS Diastolic Thickness 0.8 cm 0.6 - 1.0 / 0.6 - 0.9 cm IVS Systolic Thickness 1.5 cm LVPW Diastolic Thickness 0.8 cm 0.6 - 1.0 / 0.6 - 0.9 cm LVPW Systolic Thickness 1.4 cm RV Chamber Size 2.2 cm LV Ejection Fraction 2D Teich 76.5 % LA Width 2.5 cm LA Height 3.6 cm RA Width 2.4 cm RA Height 4.7 cm M-MODE LV Diastolic Diameter MM 5.0 cm 4.2 - 5.9 / 3.9 - 5.3 cm LV Systolic Diameter MM 3.3 cm LV Ejection Fraction MM Teich 63.1 % IVS Diastolic Thickness MM 1.1 cm 0.6 - 1.0 / 0.6 - 0.9 cm IVS Systolic Thickness MM 1.6 cm LVPW Diastolic Thickness MM 1.4 cm 0.6 - 1.0 / 0.6 - 0.9 cm LVPW Systolic Thickness MM 1.4 cm FINDINGS Left Ventricle Normal left ventricular cavity size. Normal left ventricular systolic function. Left ventricular ejection fraction is estimated at 60-65%. No daignostic regional wall motion abnormalities. Diastolic function was not assessed. Right Ventricle Normal right ventricular size and systolic function. Right Atrium Normal right atrial size. Right atrial pressure estimated at 15 mm Hg. Left Atrium Normal left atrial size. Mitral Valve Structurally normal mitral valve. No mitral valve stenosis. No mitral valve regurgitation. Aortic Valve Structurally normal trileaflet aortic valve. No aortic valve stenosis. No aortic valve regurgitation. Tricuspid Valve Structurally normal tricuspid valve. No tricuspid valve stenosis. Mild tricuspid valve regurgitation. Pulmonic Valve Structurally normal pulmonic valve. Trace pulmonary valve regurgitation. Pericardium No pericardial effusion. Dilated inferior vena cava. Aorta Normal size aortic root and proximal ascending aorta. CONCLUSIONS 1. This is a technically difficult study with off axis images. 2. Normal left ventricular cavity size and systolic function. Left ventricular ejection fraction is estimated at 60-65%. No diagnostic regional wall motion abnormalities. 3. Mild tricuspid valve regurgitation. 4. Right atrial pressure estimated at 15 mm Hg. 5. Dilated inferior vena cava. 6. No prior similsr studies to compare. Lazara Moore MD (Electronically Signed) Final Date: 17 February 2020 18:14 S
[2020-02-17 17:26] LABS: D Dimer 8.14 ug/mIFEU (0-0.59)
--- NOTE | 2020-02-17 17:39 | CTR_ITS ---
PROCEDURE INFORMATION: Exam: CT Angiography Chest With Contrast Exam date and time: 02/17/2020 5:46 PM Age: 39 years old Clinical indication: Abnormal findings; Abnormal diagnostic tests; Elevated d-dimer; Patient HX: S/P c-sect 02/11 confusion w elev d-dimer and low h&h; Additional info: Elevated d-dimer; Near syncope TECHNIQUE: Imaging protocol: Computed tomographic angiography of the chest with intravenous contrast. 3D rendering (Not supervised by radiologist): MIP and/or 3D reconstructed images were created by the technologist. Radiation optimization: All CT scans at this facility use at least one of these dose optimization techniques: automated exposure control; mA and/or kV adjustment per patient size (includes targeted exams where dose is matched to clinical indication); or iterative reconstruction. Contrast material: OMNI 350; Contrast volume: 95 ml; Contrast route: INTRAVENOUS (IV); COMPARISON: CR XR chest 1V portable [id number] 02/17/2020 8:40 AM RADIATION DOSE METRICS: Total DLP (mGy-cm): 554.71 FINDINGS: Pulmonary arteries: There is no pulmonary embolus. Aorta: Unremarkable. No aortic aneurysm. No aortic dissection. Lungs: There is trace interstitial prominence and ground-glass opacity in the lungs compatible with very mild edema, pneumonitis or atelectasis. There is no lobar consolidation. Pleural space: Unremarkable. No pneumothorax. No pleural effusion. Heart: Unremarkable. No cardiomegaly. No pericardial effusion. Lymph nodes: Unremarkable. No enlarged lymph nodes. Bones/joints: Unremarkable. No acute fracture. Soft tissues: Unremarkable. CT/CT angio chest PE [facility] [id number] IMPRESSION: 1. There is no pulmonary embolus. 2. There is trace interstitial prominence and ground-glass opacity in the lungs compatible with very mild edema, pneumonitis or atelectasis. Radiation Dose CTDIVOL = (mGy): DLP = 554.71 (mGy-cm)
--- NOTE | 2020-02-17 17:54 | PC.NURSE ---
patient swabbed for COVID at this time
[2020-02-17] MEDS: iohexol 350 mg/mL 100 mL Btl IV (18:34)
[2020-02-17 18:39] LABS: SARS Covid-2 Antigen Negative (Negative)
[2020-02-17 19:01] LABS: Acetaminophen < 5.0 ug/mL (10-30); Alcohol Level < 10 mg/dL (0-10); Salicylate < 0.3 mg/dL (3-10)
--- NOTE | 2020-02-17 19:44 | PM.PSYCN ---
Providers/Reason for Consult Consulting Physican/Specialty*: Jae Rowe M.D./Psychiatry Reason for Consult*: confusion, odd behaviors Requesting Physcian: Dr. Oliveira Attending Physician: Dr. Jurado Psych Consult HPI History of Present Illness Amira Juarez is a 39 year old female who came to the ED today for the second time. After she was discharged just a few hours ago she went home and tried to rest. She was lying in bed when she began screaming to her that she was . She states she was having an out of body experience and kept telling her that she was already . She got up and went to the kitchen to grab a glass of water and she poured it on her head. Patient felt like she was surrounded by white lights. She had her drive her to an ambulance bay where she told them she thought her uterus had ruptured and she was bleeding out internally even though she had no abdominal pain. Patient, upon arrival, appears in no acute distress. She often tells me that she feels crazy . She is not complaining of any of the symptoms that I saw her for on the previous visit. Review of Systems Narrative: Const: Denies: fever(s) or chills Eyes: Denies: change in vision or blurry vision Card: Denies: chest pain, palpitations, irregular heart rhythm, lightheadedness, syncope or dyspnea on exertion Resp: Denies: dyspnea, productive cough or pain on inspiration GI: Denies: abdominal pain, nausea, vomiting, heartburn or diarrhea : Denies: dysuria Musc: Denies: neck pain, back pain or joint pain Skin/Breast: Denies: rash Neuro: Reports: behavioral changes; Denies: headache(s), numbness in extremities, weakness in extremities, sensory changes, difficulty walking, dizziness, Slurred speech present, difficulty communicating thoughts, seizure-like activity or involuntary movements Reports: Out of body experience, white lights. Psych: Denies: auditory hallucinations, suicidal ideation or homicidal ideation. PFSH NPU PFSH: Medical History (Updated 02/17/20 @ 20:04 by Jae Rowe) Brief psychotic disorder with onset This patient is at risk of repeat episodes in subsequent pregnancies, about 1 in 7 Social History (Updated 02/12/20 @ 17:56 by Sandie Chavez MD) Smoking and tobacco status: never smoked Second hand smoke exposure: No Alcohol intake: never Number of children: 5 Other Psychiatric History: Other Psychiatric History: No prior history. This is her sixth delivery. Female Reproductive History: Para: 5 Spontaneous abortions: No Mental Status Exam MSE Comments: The patient is found in room 15 in the emergency room. She is receiving a transfusion and greets me in a friendly manner. She seems quite comfortable now. Orientation is intact and the patient likens her experience at home to what she has read about people who have and were brought back to report out of body experiences. She freely acknowledges pouring water on herself and her delusional belief that something had broken in her belly even though she had no symptoms or pain. Right now mood is a mixture of happiness, relief and anxiety. Affect is wholly appropriate and there are no bizarre behaviors. I feel so much better, she states. Thought processes are integrated and free of any racing, blocking or looseness of association. Speech is easily understood, of normal rate and volume without dysarthria, aprosody or pressure. Cognitive functions are clearly intact, including orientation, reason, long- and short-term memory. Insight and judgment are intact. She has not named the baby yet because there is a conflict between her and her as to what his name should be. They are still negotiating. Vitals/I&O/Wt Last Vital Signs Temp 98.6 F 02/17/20 18:06 Pulse 64 02/17/20 19:00 Resp 18 02/17/20 19:00 BP 118/79 02/17/20 19:00 Pulse Ox 98 02/17/20 19:00 02/17/20 02/17/20 02/17/20 07:59 15:59 23:59 Intake Total 1000 Balance 1000 Weight last 48 hrs Weight 180 lb Physical Exam Narrative: EXAM NARRATIVE: Please see Ms. Gonzalezton's and Dr. Oliveira's assessment. A&P Assessment and plan (1) Brief psychotic disorder with onset: The patient displays no psychotic symptoms now. Her reality contact is far more solid. The transfusion has effectuated a significant improvement in her mental status as well as her overall brain and corporal physiology. Status: Acute Involuntary Hold Information 96 Hour Hold: 96 Hour Involuntary Admission: No 21 Day Hold: 21 Day Involuntary Hold: No Attestations NPU Medical Necessity Statement*: I anticipate 2-3 midnights additional hospitalization. Coding Level of Care Code Acute Automatic Pad Making Machine Operator for Pavang Fwd Diagnoses Brief psychotic disorder with onset F23
[2020-02-17 19:50] LABS: Amphetamines Screen Urine Negative (Negative); Barbiturates Screen Urine Negative (Negative); Benzodiazepines Screen Urine Negative (Negative); Cocaine Screen Urine Negative (Negative); Opiate Screen Urine Positive (Negative); PCP Screen Urine Negative (Negative); THC Screen Urine Negative (Negative)
--- NOTE | 2020-02-17 20:18 | ECG_ITS ---
[facility] Test Date: 2020-02-17 Pat Name: Amira Juarez Department: Room: Gender: Female Solder Sprayer: : 1980 Requested By: Pedro Marquez Order Number: [id number] Callie MD: Lazara Moore M.D. Measurements Intervals [place] Rate: 46 P: 32 [place]: 162 QRS: 5 QRSD: 78 T: 20 QT: 484 QTc: 424 Interpretive Statements SINUS BRADYCARDIA Compared to ECG 02/17/2020 16:19:00 Sinus rhythm no longer present Electronically Signed On 02-18-2020 7:47:30 CDT by Lazara Moore M.D. [email or web address] [email or web address] – [id number]
--- NOTE | 2020-02-17 21:37 | PC.NURSE ---
Patient has a lot of anxiety during stay, patient breast feeding child in ER, however patient appears altered during stay and has obvious psychosis, Patient visibly shakes with anxiety and has racing verbal statements at times. Patient is convinced of internally bleeding although patient has been educated on CT scan results negative. Patient continues to repeatedly report internal bleeding although evaluation shows otherwise. Patient has poor self hygiene with body odor. Patient reports that if she goes home she will . This nurse feels that patient is not safe to go home with at this time in this altered condition.
--- NOTE | 2020-02-17 21:56 | PC.NURSE ---
Patient arrived to unit via gurney in stable condition with second unit of blood currently transfusing. Patient denies any pain at this time or reaction to the blood transfusion. Patient able to ambulate with standby assist from the gurney to the bed without complication. Patient has with her in a carseat upon arrival to unit. POC discussed with patient at this time and all questions answered.
--- NOTE | 2020-02-17 23:06 | PC.NURSE ---
RN at bedside, blood transfusion complete at this time. Patient informed that IV medication would be given and then discharge after 30 minutes. Patient reports that she has no questions at this time and feels that she is safe to go home.
[2020-02-17] MEDS: FUROsemide 10 mg/mL SDV 2mL 20 MG IVP (23:16)
--- NOTE | 2020-02-17 23:55 | PC.NURSE ---
Patient up to wheelchair at this time with infant in carseat on her lap. Patient denies any pain, shortness of breath, fever, chills or chest pain. Patient states that she does not have any concerns about going home and will follow up with Dr. Chavez. All questions answered at this time. Patient wheeled down to ER parking lot where was waiting with the car. Patient up and ambulated to car with no difficulty.
--- NOTE | 2020-03-10 12:52 | P.SS_ITS ---
Short Stay Summary Providers Date of Admit/Discharge: 03/10/20 Attending Provider: Sandie Chavez MD Chief Complaint: PT FEELS THAT THERE IS SOMTHING WRONG HPI History of Present Illness Amira Juarez is a 39 year old female who presented to the ER with multiple complaints was having symptomatic blood loss anemia and was scheduled for outpatient blood transfusion x2 units. Home Meds/Allergies Home Medications and Allergies Allergies Allergy/AdvReac Type Severity Reaction Status Date / Time No Known Allergies Allergy Verified 02/13/20 04:03 PFSH Acute PFSH: Medical History (Updated 03/10/20 @ 12:54 by Sandie Chavez MD) Brief psychotic disorder with onset This patient is at risk of repeat episodes in subsequent pregnancies, about 1 in 7 Social History (Updated 02/12/20 @ 17:56 by Sandie Chavez MD) Smoking and tobacco status: never smoked Second hand smoke exposure: No Alcohol intake: never Number of children: 5 Female Reproductive History: Date of last menstrual period: 05/07/19 Para: 5 Spontaneous abortions: No Vitals/I&O/Wt Last Vital Signs Temp 98.5 F 02/17/20 23:15 Pulse 43 L 02/17/20 23:31 Resp 17 02/17/20 23:31 BP 134/72 02/17/20 23:31 Pulse Ox 99 02/17/20 23:31 SSS Data Data Completed and Pending: Completed Studies During Hospitalization Category Date Time Status CT angio chest PE protcl [id number] Urge nt Cat Scan 02/17/20 17:39 Completed CV echo limited 9 [id number] Urgent Ultrasound 02/17/20 17:04 Completed Diagnoses at Discharge Discharge Diagnosis (1) Brief psychotic disorder with onset: Status: Acute Problem details: This patient is at risk of repeat episodes in subsequent pregnancies, about 1 in 7 (2) Anemia: Status: Acute Problem details: Symptomatic requiring 2 units packed red blood cells Qualifiers: Anemia type: unspecified type Qualified Code(s): D64.9 - Anemia, unspecified Discharge Plan Discharge Patient Disposition: Home Condition: Stable Discharge Orders: Discharge Order (Routine); Ordered 02/17/20 Ordered By: Sandie Chavez Referrals: Sandie Chavez MD [Physician] - 1-3 days Discharge Diet: Usual diet Discharge Activity: Limit activity as instructed Patient Instructions: Furosemide (By mouth), Blood Transfusion (DC) Discharge Date/Time: 02/17/20 23:55 Attestations Medical Necessity Statement*: Symptomatic anemia requiring blood transfusion Time Spent in Patient Care*: less than 30 min Quality Metrics Clinical Quality Measures: During this hospital stay, did patient experience: None Coding Level of Care Code Acute Mapping Analyst for Chg Fwd Diagnoses Brief psychotic disorder with onset F23 Anemia D64.9 Anemia type: unspecified type
== END 2020-02-17 23:55 | disposition home or self-care (01) ==
LOC: ER 20:48 → OBGYN 20:50
PROVIDERS: Emergency Medicine; Physician Assistant; Admitting Provider Family Medicine; Emergency Provider Emergency Medicine; Visit Provider Family Medicine
DX: F23 Brief psychotic disorder (principal); D64.9 Anemia, unspecified
CPT/HCPCS: 12345; 36430; 71275; 80053; 80306; 80307; 81001; 83605; 83880; 84484; 85025; 85378; 86850; 86900; 86920; 87086; 87426; 93005; 93308; 96360; 96375; 99284; 99285; G0378; J1940; J7030; P9016; Q9967

== ENCOUNTER → 2022-12-03 14:03 | Outpatient (BNVA) | payer MEDICAID, SELFPAY | PROVIDERS: Visit Provider Family Medicine | DX: R10.9 Unspecified abdominal pain (principal) | CPT/HCPCS: 81000; 87086 ==

== ENCOUNTER → 2023-10-25 13:44 | Outpatient (BNVA) | payer MEDICAID, SELFPAY | PROVIDERS: PCP Family Medicine; Visit Provider Family Medicine | DX: M25.50 Pain in unspecified joint (principal); Z13.6 Encounter for screening for cardiovascular disorders | CPT/HCPCS: 85025 ==

== ENCOUNTER → 2023-11-29 15:30 | Outpatient (BNVA) | payer MEDICAID, SELFPAY | PROVIDERS: PCP Family Medicine; Visit Provider Nurse Practitioner Family | DX: L21.8 Other seborrheic dermatitis (principal); L81.4 Other melanin hyperpigmentation; L82.1 Other seborrheic keratosis; L81.2 Freckles; D22.122 Melanocytic nevi of left lower eyelid, including canthus | CPT/HCPCS: 99214 ==

== ENCOUNTER 2025-04-14 14:45 | Emergency (ER) | payer MEDICAID, SELFPAY ==
[2025-04-14 14:50] VITALS: BP 121/83; PULSE 81; RESP 16; TEMP 36.4; O2SAT 99; BMI 29.2
--- OUTSIDE RECORDS SUMMARY | 2025-04-14 14:50 | XMS_ITS | Clinical Summary ---
Author Organization [facility] [place] Address [address] [place] [address] Care Team Providers Care Brick And Tile Making Machine Operator Name Role Phone Unavailable Primary Care Provider Unavailabl e Encounters Date Type Department Care Team Description 04/10/2025 External Device Data STL ABSTRACTION Provider, Abstract 04/09/2025 Telephone [facility] [address] [place] [id number] Jasmine Jones MD needs appt/CLL from Last 3 Months Social History Tobacco Use Types Packs/Day Years Used Date Smoking Tobacco: Never Assessed Comments Unknown Sex and Gender Information Value Date Recorded Sex Assigned at Not on file Legal Sex Female 3:12 PM CDT Gender Identity Not on file Sexual Orientation Not on file Plan of Treatment Upcoming Encounters Date Type Department Care Team (Late st Contact Info) Description 05/02/2025 2:[address] OPERATIONS CLERK Office Visit [facility] O[facility] [place] [address] [place] [address] Bri Fish CNM [address] [place], [place] [id number] Health Maintenance Due Date Last Done Comments DTAP/TDAP/TD VACCINES (1 - Tdap) 1999 HEPATITIS B VACCINES (1 of 3 - 19+ 3-dose series) 03/14 Preventative Visit-Managed Medicaid 1999 HPV/Cotest (21-29) 2001 HPV VACCINES (1 - 3-dose SCDM series) 2007 CERVICAL CANCER SCREENING 2010 HPV/Cotest (30-65) 2010 PAP SMEAR 2010 BREAST CANCER SCREENING 2020 INFLUENZA VACCINE (#1) 2025 COLORECTAL SCREENING 2025 Colorectal Cancer Screening 2025 FIT-DNA Q 3 years 2025 FIT/FOBT Q 1 year 2025 Flex Sig/CT Colonography Q 5 years 2025 Insurance [employer] [facility] [id number]
--- OUTSIDE RECORDS SUMMARY | 2025-04-14 14:50 | XMS_ITS | Encounter Summary ---
Author Organization [facility] Address [address] [place] [address] Care Team Providers Care Bin Worker Name Role Phone Unavailable Primary Care Provider Unavailabl e Reason for Visit * Reason Onset Date Comments needs appt/CLL 04/09/2025 Encounter Details Date Type Department Care Team (Late st Contact Info) Description 04/09/2025 Telephone [facility] OBGYN-[address] [address] Jasmine Jones MD [address] [place] [phone] needs appt/CLL Social History Tobacco Use Types Packs/Day Years Used Date Smoking Tobacco: Never Assessed Comments Unknown Sex and Gender Information Value Date Recorded Sex Assigned at Not on file Legal Sex Female 3:12 PM CDT Gender Identity Not on file Sexual Orientation Not on file documented as of this encounter Miscellaneous Notes * Telephone Encounter - Alaina Bautista RN - 04/10/2025 1:04 PM CDT Spoke with [facility]. Discussed that we do not have any availability that would accommodate the patients needs. Provided patient with numbers to [facility]. Patient verbalizes understanding and is agreeable to plan of care. * Telephone Encounter - Millie Lipscomb - 04/09/2025 3:49 PM CDT [facility] has requested an appt for OBW and OBI could be 12 or 16 weeks. Upon review, the schedule of provider did not show any availability that would accommodate the patients request. Patient call back number [phone] documented in this encounter Plan of Treatment Upcoming Encounters Date Type Department Care Team (Late st Contact Info) Description 05/02/2025 2:30 PM SWIMMING PROFESSOR Office Visit [facility] [place] [address] [place] [address] Bri Fish CNM [address] [place], [place] [id number] documented as of this encounter Visit Diagnoses Not on filedocumented in this encounter
--- OUTSIDE RECORDS SUMMARY | 2025-04-14 14:50 | XMS_ITS | Encounter Summary ---
Author Organization [facility] Address [address] [place] [address] Care Team Providers Care Search And Rescue Officer Name Role Phone Unavailable Primary Care Provider Unavailabl e Encounter Details Date Type Department Care Team (Late st Contact Info) Description 04/10/2025 External Device Data STL ABSTRACTION Provider, Abstract NO ADDRESS ON FILE Social History Tobacco Use Types Packs/Day Years Used Date Smoking Tobacco: Never Assessed Comments Unknown Sex and Gender Information Value Date Recorded Sex Assigned at Not on file Legal Sex Female 3:12 PM CDT Gender Identity Not on file Sexual Orientation Not on file documented as of this encounter Plan of Treatment Upcoming Encounters Date Type Department Care Team (Late st Contact Info) Description 05/02/2025 2:30 PM BOTTOM STEEP TENDER Office Visit [facility] O[facility] [place] [address] [place] [address] Bri Fish CNM [address] [place], [place] [phone] documented as of this encounter Visit Diagnoses Not on filedocumented in this encounter
--- NOTE | 2025-04-14 14:59 | W.ED.SKABFB ---
HPI - Skin/Abscess/Foreign Bdy General: Chief complaint: Skin/Abscess/Foreign Body Stated complaint: Golbgyccmxxazptmxolokmyublmstvnpnctntsq23 weeks pr Time Seen by Provider: 04/14/25 14:54 Source: patient Mode of arrival: ambulatory Limitations: no limitations History of Present Illness: Patient is a 45-year-old female presents to ED today with a concern of poison nydia/oak/sumac. Patient states several days ago they were cleaning out some brush to make room for a turkey. She states the next day she began noticing a rash to her right volar forearm that she began treating with conservative/topical medications. She states the rash has continued to spread and is now affecting her abdomen, back, and mainly her face. She feels like her face is swollen and aparicio/itches. She states she is 17 weeks and knows she probably needs steroids but is concerned about the . She states her dates are based off her LMP. She has not had any OB care up until this point but does have an upcoming appointment with Dr. Vela. complaint: rash Onset (ago): day(s) Tetanus up to date: yes Location: generalized Severity: moderate Quality: burning and pruritic Relieving factors: none Exacerbating factors: none Context: other (plant exposure) Associated symptoms: Reports no associated symptoms; Deny chills, fever(s), nausea or vomiting Treatments prior to arrival: none Related Data Previous Rx's ?Medication ?Instructions ?Recorded cetirizine 10 mg tablet (Zyrtec) 10 mg PO DAILY #30 tabs 11/29/23 omeprazole 40 mg capsule,delayed 40 mg PO DAILY #20 caps 11/29/23 release prednisone 10 mg tablet 10 mg PO DAILY 10 days #41 tabs 04/14/25 Allergies Allergy/AdvReac Type Severity Reaction Status Date / Time No Known Allergies Allergy Verified 04/14/25 14:52 Review of Systems Const: Denies: fever(s), chills, body aches, fatigue or malaise Eyes: Denies: change in vision, blurry vision or photophobia ENMT: Denies: throat pain or odynophagia Card: Denies: chest pain, palpitations, lightheadedness, syncope or pre-syncope Resp: Denies: dyspnea GI: Denies: nausea or vomiting Skin/Breast: Reports: rash Neuro: Denies: headache(s), numbness in extremities, weakness in extremities or sensory changes PFSH ED PFSH: Medical History Anemia Symptomatic requiring 2 units packed red blood cells Brief psychotic disorder with onset This patient is at risk of repeat episodes in subsequent pregnancies, about 1 in 7 Surgical History Status post primary low transverse section Family History Grandmother Cancer colon cancer Social History Smoking and tobacco/nicotine status: former use of tobacco/nicotine Second hand smoke exposure: No Alcohol intake: never Substance/Drug Use: never Number of children: 5 Female Reproductive History: Para: 5 Spontaneous abortions: No Physical Exam Const: COMMON NORMALS: no acute distress, average body habitus, no limitations, healthy appearing, alert and well nourished GENERAL APPEARANCE: cooperative HENMT: FACE & SINUS: other (edema and facial rash consistent with dermatitis) Eye: GENERAL EYE: appearance normal, both eyes and all related structures Neck/C-Spine: COMMON NORMALS: full ROM, no lymphadenopathy and no meningeal signs Resp: COMMON NORMALS: normal respiratory effort GI: INSPECTION: Yes gravid abdomen OTHER: bedside US showing live intrauterine -active; no formal measurements taken : COMMON NORMALS: Yes no CVA tenderness BLADDER/KIDNEY EXAM: Yes no CVA tenderness Back/Pelvis: COMMON NORMALS: no CVA tenderness Extremity: COMMON NORMALS: no clubbing, cyanosis or edema, no calf tenderness and no pedal edema Neuro: SENSORIUM/ORIENTATION: Yes alert MENINGEAL SIGNS: Yes no meningeal signs Skin: NARRATIVE SKIN EXAM: erythematous coalescing maculopapular rash noted to forearms, abdomen, back, face RASHES: rashes noted Course Consultations: Consultation #1: Dr. Velez-stated he was perfectly fine with the decision to place her on a steroid taper at this stage of gestation Vital Signs: Vital signs: Vital Signs Temperature 97.6 F 04/14/25 14:50 Pulse Rate 81 04/14/25 14:50 Respiratory Rate 16 04/14/25 14:50 Blood Pressure 121/83 04/14/25 14:50 Pulse Oximetry 99 04/14/25 14:50 MDM - Skin/Abscess/Foreign Bdy Medicial Decision Making Patient is a 45-year-old female here for a significant plant dermatitis that now is involving her face. Patient would benefit from being on a long oral steroid taper. She does not want IM steroids. Did discuss with Dr. Velez as she is 17 weeks who felt comfortable with her being on this taper. Recommend she follow-up with OB as scheduled. Return to ED precautions discussed regarding worsening of her rash. Differential Diagnosis Likely viral exanthem, urticaria, allergic reaction to drug, cellulitis, eczema, insect bites, impetigo and contact dermatitis Medical Records I reviewed the patient's medical records. No radiology studies performed this visit Discharge Plan Discharge Patient Disposition: Home Clinical Impression: Dermatitis due to plant Condition: Stable Prescriptions: New prednisone 10 mg tablet 10 mg PO DAILY 10 Days Qty: 41 0RF Rx Instructions: 6 tab on day 1-2, 5 tab on day 3-4, 4 tab on day 5-6, 3 tabs on day 7-8, 2 tab on day 9-10, 1 tab on day 11 No Action cetirizine [Zyrtec] 10 mg tablet 10 mg PO DAILY Qty: 30 0RF omeprazole 40 mg capsule,delayed release(DR/EC) 40 mg PO DAILY Qty: 20 0RF Discharge Orders: Discharge ED (Routine); Ordered 04/14/25 Ordered By: Aminta Austin Referrals: Jason Jimenez MD [Primary Care Provider, Family Practice] Patient Instructions: Poison Nydia, [place]ypso, and Sumac - Adult, Patient Portal & Wily Instructions Print Language: Romanian Coding Level of Care Code ED [employer] Manager for Trae Britton
== END 2025-04-14 16:00 | disposition home or self-care (01) ==
PROVIDERS: Emergency Provider Physician Assistant; PCP Family Medicine
DX: O26.892 Other specified pregnancy related conditions, second trimester (principal); L25.5 Unspecified contact dermatitis due to plants, except food; Z3A.17 17 weeks gestation of pregnancy; Z87.891 Personal history of nicotine dependence
CPT/HCPCS: 99283